=== PATIENT | female | born 1980 | race Caucasian/White ===

== ENCOUNTER 2021-08-05 11:41 | Inpatient (IN) | payer MEDICAID, SELFPAY ==
[2021-08-05 12:06] VITALS: BP 112/72; PULSE 112; RESP 20; TEMP 38.8; O2SAT 100; BMI 23.6
--- NOTE | 2021-08-05 13:23 | ED_ITS ---
HPI - Abdominal Pain General: Chief Complaint: Abdominal Pain Stated Complaint: N/V/D, ABD pain, Time Seen by Provider: 08/05/21 12:45 Source: patient Mode of arrival: ambulatory Limitations: no limitations History of Present Illness: 41 of old female who presents to the emergency room with abdominal pain is been going on for last week she had mild dysuria with it some fever as well. She generally has been very nauseous she has had a few episodes of loose stools no hematochezia melena hematemesis or coffee-ground emesis she has vomited a couple times as well. No history of renal stones no hematuria. MD elicited complaint: abdominal pain Pertinent past history: past UTI Onset (ago): week(s) (1) Pain Consistency: intermittent Location: Epigastric Severity: mild Quality: cramping Radiation: none Migration to: no migration Exacerbating factors: nothing Relieving factors: nothing Associated Symptoms: Reports GI cramping, poor appetite and vomiting; Denies anorexia, belching, bloating, change in bowel habits, change in stool character, chills, coffee ground emesis, constipation, diarrhea, dyspepsia, dysuria, excessive flatus, fever(s), heartburn, hematochezia, hematuria, hematemesis, fecal incontinence, loose stools, melena, nausea and syncope Review of Systems Const: Denies: fever(s) or chills ENMT: Denies: throat pain, ear or mastoid pain, nasal discharge or nasal congestion Card: Denies: syncope Resp: Denies: dyspnea, productive cough or non-productive cough GI: Reports: vomiting and GI cramping; Denies: nausea, hematemesis, coffee ground emesis, heartburn, diarrhea, constipation, bloating, belching, excessive flatus, fecal incontinence, change in bowel habits, change in stool character, hematochezia or melena : Denies: dysuria or hematuria Skin/Breast: Denies: rash or pruritus PFSH ED PFSH: Medical History 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), onset a few years ago, occurs maybe once a month Psychiatric care Tobacco use Surgical History History of colposcopy with cervical biopsy Family History Mother Fibromyalgia Social History Smoking and tobacco status: current some day smoker cigarettes [ Other cigarette details: About a half a pack a day] Alcohol intake: current Alcohol intake frequency: few times a month Physical Exam Const: GENERAL APPEARANCE: cooperative and comfortable ORIENTATION/CONSCIOUSNESS: Yes awake, Yes oriented to person, Yes oriented to place and Yes oriented to time HENMT: COMMON NORMALS: normocephalic, atraumatic, hearing grossly normal bilaterally, external ears normal, EAC's normal, TM's normal bilaterally and Normal nasal mucous membranes and turbinates present HEAD & SCALP: normocephalic and atraumatic NOSE: Normal nasal mucous membranes and turbinates present EXTERNAL EAR: Yes external ears normal EXTERNAL AUDITORY CANAL: EAC's normal TYMPANIC MEMBRANE: TM's normal bilaterally Eye: COMMON NORMALS: Equal, round and reactive pupils present, EOMs intact bilaterally, conjunctivae normal and no scleral icterus CONJUNCTIVA: Yes conjunctivae normal PUPIL: Yes Equal, round and reactive pupils present Neck/C-Spine: COMMON NORMALS: no JVD Lymph: LYMPHATIC: no lymphadenopathy noted and no lymphedema noted Resp: COMMON NORMALS: normal respiratory effort, No retractions, No use of accessory muscles and clear to auscultation bilaterally AUSCULTATION: clear to auscultation bilaterally Cardio: COMMON NORMALS: no JVD, regular rate, regular rhythm and No murmurs present (Cardio) RATE: regular rate RHYTHM: regular rhythm GI: COMMON NORMALS: Soft to palpation and No hepatosplenomegaly present AUSCULTATION: Yes normoactive bowel sounds PALPATION: Yes Soft to palpation, No Tenderness to palpation present (GI), No Guarding due to palpation present (GI) and Yes No hepatosplenomegaly present : BLADDER/KIDNEY EXAM: Yes CVA tenderness bilateral Back/Pelvis: GENERAL BACK: Yes CVA tenderness Extremity: COMMON NORMALS: normal to inspection, capillary refill normal, no clubbing, cyanosis or edema, no calf tenderness and no pedal edema Neuro: SENSORIUM/ORIENTATION: Yes oriented to person, Yes oriented to place and Yes oriented to time Skin: COMMON NORMALS: no rashes or lesions noted GENERAL SKIN EXAM: no rashes or lesions noted Course Vital Signs: Vital signs: Vital Signs Temperature 97.9 F 04/05/22 04:00 Pulse Rate 98 08/13/21 04:00 Respiratory Rate 17 08/13/21 04:00 Blood Pressure 136/72 08/13/21 04:00 Pulse Oximetry 96 08/13/21 04:00 MDM - Abdominal Pain Medical Decision Making Acute pyelonephritis with significant leukocytosis acute kidney injury and hypokalemia discussed with hospitalist orders written Medical Records I reviewed the patient's medical records. Lab Data I reviewed the patient's lab results. : 08/12/21 08:27 08/13/21 05:03 Labs/Radiology: Radiology Impressions Abdomen/Pelvis CT 08/05/21 13:42 IMPRESSION: 1. Bilateral enlarged kidneys with perinephric stranding and periureteral stranding and small amount of edema along the paracolic gutter on the RIGHT. Differential includes acute pyelonephritis, acute nephrotic syndrome vasculitis and glomerulonephritis. 2. Short segment area of wall thickening involving the ascending colon with adjacent fluid and stranding. Cannot exclude early colonic lesion. Consider colonoscopy on an outpatient basis. 3. Hepatomegaly and hepatic steatosis. Notified Wallace Cotton DO at 08/05/2021 2:59 PM. Laboratory Results WBC 44.4 10^3/uL (4.0-10.0) H* 08/05/21 13:20 RBC 3.86 10^6/uL (4.1-5.3) L 08/05/21 13:20 Hgb 11.9 g/dL (11.5-15.3) 08/05/21 13:20 Hct 35.2 % (37.0-47.0) L 08/05/21 13:20 MCV 91.2 fl (81-99) 08/05/21 13:20 MCH 30.8 pg (28.0-34.0) 08/05/21 13:20 MCHC 33.8 g/dL (30.0-36.0) 08/05/21 13:20 RDW 13.7 % (12.1-15.1) 08/05/21 13:20 Plt Count 180 10^3/cmm (130-400) 08/05/21 13:20 MPV 11.1 fL (7.4-10.4) H 08/05/21 13:20 Neut % (Auto) 87.9 % 08/05/21 13:20 Lymph % (Auto) 4.9 % 08/05/21 13:20 [place] % (Auto) 4.5 % 08/05/21 13:20 Eos % (Auto) 0.0 % 08/05/21 13:20 Baso % (Auto) 0.1 % 08/05/21 13:20 Neut # (Auto) 38.97 10^3/uL (1.8-7.7) H 08/05/21 13:20 Lymph # (Auto) 2.2 10^3/uL (0.8-4.8) 08/05/21 13:20 [place] # (Auto) 2.0 10^3/uL (0.2-0.9) H 08/05/21 13:20 Eos # (Auto) 0.0 10^3/uL (0.0-0.8) 08/05/21 13:20 Baso # (Auto) 0.1 10^3/uL (0.0-0.1) 08/05/21 13:20 Nucleated RBC % (auto) 0 % 08/05/21 13:20 Nucleated RBCs # 0.0 /100WBC 08/05/21 13:20 Sodium 130 mmol/L (136-145) L 08/05/21 14:21 Potassium 2.6 mmol/L (3.5-5.1) L* 08/05/21 14:21 Chloride 92 mmol/L (98-107) L 08/05/21 14:21 Carbon Dioxide 24 mmol/L (22-29) 08/05/21 14:21 Anion Gap 16.6 (5-19) 08/05/21 14:21 BUN 19 mg/dL (6-20) 08/05/21 14:21 Creatinine 2.0 mg/dL (0.5-0.9) H 08/05/21 14:21 GFR Calculation 27.2 mL/min (90-130) L 08/05/21 14:21 Glucose 113 mg/dL (65-115) 08/05/21 14:21 Calculated Osmolality 273 mOsm/kg (285-295) L 08/05/21 14:21 Lactic Acid 1.0 mmol/L (0.5-2.2) 08/05/21 14:21 Calcium 7.8 mg/dL (8.5-10.5) L 08/05/21 14:21 Total Bilirubin 0.7 mg/dL (0.15-1.2) 08/05/21 14:21 AST 39 U/L (0-32) H 08/05/21 14:21 ALT 20 U/L (0-33) 08/05/21 14:21 Alkaline Phosphatase 198 IU/L (35-105) H 08/05/21 14:21 Total Protein 6.1 g/dL (6.6-8.7) L 08/05/21 14:21 Albumin 2.0 g/dL (3.5-5.2) L 08/05/21 14:21 Globulin 4.1 g/dL (1.3-4.6) 08/05/21 14: Lipase 11 U/L (13-60) L 08/05/21 14:21 HCG, Qual Negative (Negative) 08/05/21 12:52 Urine Color Yellow (Yellow) 08/05/21 12:52 Urine Appearance Cloudy (CLEAR) 08/05/21 12:52 Urine pH 5 (5-7) 08/05/21 12:52 Ur Specific [place] 1.015 (1.005-1.030) 08/05/21 12:52 Urine Protein 2+ (Negative) H 08/05/21 12:52 Urine Glucose (UA) Norm (Normal) 08/05/21 12:52 Urine Ketones Negative (Negative) 08/05/21 12:52 Urine Blood 3+ (Negative) H 08/05/21 12:52 Urine Nitrate Negative (Negative) 08/05/21 12:52 Urine Bilirubin Neg (Negative) 08/05/21 12:52 Urine Urobilinogen 1 mg/dL (Negative) H 08/05/21 12:52 Ur Leukocyte Esterase 2+ (Negative) H 08/05/21 12:52 Urine RBC 10-15 /hpf (0-2) H 08/05/21 12:52 Urine WBC Too numerous to cnt /hpf (0-5) H 08/05/21 12:52 Ur Squamous Epith Cells 0-4 /hpf (0-5) H 08/05/21 12:52 Amorphous Sediment Not Reportable 08/05/21 12:52 Urine Bacteria 2+ /hpf (NONE) H 08/05/21 12:52 Discharge Plan Discharge Patient Disposition: Admitted As Inpatient Admit Provider: Chelle Franco Clinical Impression: Acute pyelonephritis, Acute kidney injury, Sepsis, Hypokalemia, Diarrhea Condition: Stable Coding Level of Care Code ED Paint Laboratory Technician for Chg Fwd Exam Comprehensive
[2021-08-05 13:31] LABS: Basophils # 0.1 10^3/uL (0.0-0.1); Basophils % 0.1 %; Hematocrit 35.2 % (37.0-47.0); Hemoglobin 11.9 g/dL (11.5-15.3); Lymphocytes # 2.2 10^3/uL (0.8-4.8); Lymphocytes % 4.9 %; Mean Corpuscular HGB Conc 33.8 g/dL (30.0-36.0); Mean Corpuscular Hemoglobin 30.8 pg (28.0-34.0); Mean Corpuscular Volume 91.2 fl (81-99); Mean Platelet Volume 11.1 fL (7.4-10.4); Monocytes % 4.5 %; Neutrophils # 38.97 10^3/uL (1.8-7.7); Neutrophils % 87.9 %; Nucleated Red Blood Cells % 0 %; Platelet Count 180 10^3/cmm (130-400); Red Blood Count 3.86 10^6/uL (4.1-5.3); Red Cell Distribution Width 13.7 % (12.1-15.1)
[2021-08-05 13:33] VITALS: RESP 17
[2021-08-05] MEDS: sodium chloride 0.9% 1,000 ML 999 ML IV ×3 (13:33→23:08)
[2021-08-05] MEDS: morphine 4 mg/mL SDV 1 mL IVP (13:33)
[2021-08-05 13:34] LABS: White Blood Count 44.4 10^3/uL (4.0-10.0)
[2021-08-05] MEDS: ondansetron 2 mg/ML SDV 2 mL 4 MG IVP (13:34)
[2021-08-05 13:38] LABS: Protein Urine 2+ (Negative); Specific Gravity, Urine 1.015 (1.005-1.030); Urine Appearance Cloudy (CLEAR); Urine Color Yellow (Yellow); pH Urine 5 (5-7)
[2021-08-05 13:39] LABS: Add Urine Microscopic? YES; Bilirubin Urine Neg (Negative); Blood Urine 3+ (Negative); Glucose Urine UA Norm (Normal); Ketones Urine Negative (Negative); Leukocyte Esterase Urine 2+ (Negative); Nitrate Urine Negative (Negative); Urobilinogen Urine 1 mg/dL (Negative)
[2021-08-05 13:40] LABS: Add Urine Culture? Yes; Bacteria Urine 2+ /hpf; Squamous Epithelial Cell Urine 0-4 /hpf (0-5); WBC Urine TOO NUMEROUS TO CNT /hpf (0-5)
--- NOTE | 2021-08-05 13:42 | CT_ITS ---
WS: [id number] CT ABDOMEN AND PELVIS NONCONTRAST HISTORY: Right-sided flank pain for one week. TECHNIQUE: Imaging performed through the abdomen and pelvis. Coronal and sagittal reformats are submi tted. All CT scans at [facility] use at least one of these dose optimization techniques: auto mated exposure control; mA and/or kV adjustment per patient size (includes targeted exams where dose is matched to clinical indication); or iterative reconstruction. DLP: 1273.54 mGy.cm COMPARISON: None available. Lower thorax: Lung bases are clear. Normal size heart. Small hiatal hernia. Liver: Low-attenuation from hepatic steatosis. No mass or bile duct dilatation. Gallbladder: Normal gallbladder. Pancreas: Normal size and attenuation. Normal pancreatic duct. No pancreatitis or mass. Spleen: Normal. Adrenal glands: Normal. No mass. Right kidney: Mildly enlarged edematous RIGHT kidney with perinephric stranding. There is also mild p eriureteral stranding with no obstructing calcifications identified. Left kidney: Mildly enlarged edematous LEFT kidney. Low-attenuation lesion in the posterior kidney ca nnot be further evaluated without IV contrast. Mild periureteral stranding with no obstruction. Aorta: Normal abdominal aorta, no aneurysm or atherosclerosis. There is mild thickening and edema inv olving the perirenal fascia with a small amount of fluid along the RIGHT paracolic gutter and adjacen t to the RIGHT lobe of the liver and ascending colon. No free air. No adenopathy identified on this unenhanced study. GI tract: The appendix is normal. No obstruction. There is a focal area of wall thickening involving the ascending colon. There is adjacent fluid and pericolonic stranding. Abdominal wall: Negative. No hernia. Pelvis: Normal. Osseous structures: Mild degenerative disc disease at L4-5. CT/CT kidney stone [id number] IMPRESSION: 1. Bilateral enlarged kidneys with perinephric stranding and periureteral stra nding and small amount of edema along the paracolic gutter on the RIGHT. Differ ential includes acute pyelonephritis, acute nephrotic syndrome vasculitis and g lomerulonephritis. 2. Short segment area of wall thickening involving the ascending colon with ad jacent fluid and stranding. Cannot exclude early colonic lesion. Consider colon oscopy on an outpatient basis. 3. Hepatomegaly and hepatic steatosis. Notified Wallace Cotton DO at 08/05/2021 2:59 PM.
[2021-08-05 14:16] LABS: HCG Qualitative Urine. Negative (Negative)
[2021-08-05] MEDS: cefTRIAXone 2,000 MG in sodium chloride 0.9% (plus) 50 ML 100 MG IV (14:23)
[2021-08-05 14:57] LABS: Alanine Aminotransferase 20 U/L (0-33); Alkaline Phosphatase 198 IU/L (35-105); Anion Gap 16.6 (5-19); Aspartate Amino Transferase 39 U/L (0-32); Blood Urea Nitrogen 19 mg/dL (6-20); Calcium 7.8 mg/dL (8.5-10.5); Carbon Dioxide 24 mmol/L (22-29); Chloride 92 mmol/L (98-107); Globulin 4.1 g/dL (1.3-4.6); Glomerular Filtration Rate 27.2 mL/min (90-130); Glucose 113 mg/dL (65-115); Lipase 11 U/L (13-60); Osmolality Calculated 273 mOsm/kg (285-295); Sodium 130 mmol/L (136-145); Total Bilirubin 0.7 mg/dL (0.15-1.2); Total Protein 6.1 g/dL (6.6-8.7)
[2021-08-05 15:00] LABS: Potassium 2.6 mmol/L (3.5-5.1)
[2021-08-05] MEDS: potassium chloride premix 100 ML 25 MEQ IV ×2 (15:43→18:55)
[2021-08-05] MEDS: sodium chloride 0.9% 1,000 ML 150 ML IV (15:47)
[2021-08-05 16:21] VITALS: RESP 17
[2021-08-05] MEDS: morphine 4 mg/mL SDV 1 mL 2 MG IVP (16:21)
[2021-08-05 17:47] VITALS: PULSE 107; RESP 16; O2SAT 93
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
--- NOTE | 2021-08-05 20:27 | PC.NURSE ---
report given to rhona penaloza
[2021-08-05 22:12] VITALS: BP 128/82; PULSE 103; PULSE 108; RESP 16; TEMP 36.8; O2SAT 95
[2021-08-05 22:38] VITALS: BMI 23.7
[2021-08-05] MEDS: metroNIDAZOLE IV 500 MG/100 ML PREMIX 100 MG IV (23:08)
[2021-08-05] MEDS: heparin 5,000 unit/mL INJ 1 mL 5000 UNIT SUBCUT (23:08)
[2021-08-06] VITALS (12 sets, daily range): BP systolic 124–138; BP diastolic 67–77; PULSE 72–102; RESP 16–18; TEMP 36.4–37.1; O2SAT 93–98
[2021-08-06] MEDS: sodium chlor 0.9% + KCl 20 mEq 20 MEQ/1,000 ML BAG 125 MEQ IV ×3 (00:15→19:28)
[2021-08-06] MEDS: cefTRIAXone 1,000 MG in sodium chloride 0.9% (plus) 50 ML 100 MG IV ×2 (02:24→16:04)
[2021-08-06] MEDS: morphine 4 mg/mL SDV 1 mL IVP (04:08)
[2021-08-06] MEDS: metroNIDAZOLE IV 500 MG/100 ML PREMIX 100 MG IV ×3 (05:22→21:59)
[2021-08-06] MEDS: duloxetine 60 mg Capsule 120 MG PO (05:22)
[2021-08-06 05:40] LABS: Hematocrit 31.5 % (37.0-47.0); Hemoglobin 10.4 g/dL (11.5-15.3); Mean Platelet Volume 10.6 fL (7.4-10.4); Red Blood Count 3.35 10^6/uL (4.1-5.3); Red Cell Distribution Width 14.1 % (12.1-15.1)
[2021-08-06 05:53] LABS: Lactic Sepsis W/Reflex 1.6 mmol/L (0.5-2.2)
[2021-08-06 05:54] LABS: C Reactive Protein 347.7 mg/L (0.0-4.9); Creatine Phosphokinase 25 U/L (26-192)
[2021-08-06 05:59] LABS: Alanine Aminotransferase 32 U/L (0-33); Albumin Level 2.2 g/dL (3.5-5.2); Alkaline Phosphatase 225 IU/L (35-105); Anion Gap 16.2 (5-19); Aspartate Amino Transferase 75 U/L (0-32); Blood Urea Nitrogen 19 mg/dL (6-20); Calcium 7.9 mg/dL (8.5-10.5); Carbon Dioxide 21 mmol/L (22-29); Chloride 101 mmol/L (98-107); Globulin 3.9 g/dL (1.3-4.6); Glomerular Filtration Rate 24.4 mL/min (90-130); Glucose 130 mg/dL (65-115); Magnesium 1.4 mg/dL (1.7-2.3); Osmolality Calculated 284 mOsm/kg (285-295); Phosphorus 2.5 mg/dL (2.5-4.5); Potassium 3.2 mmol/L (3.5-5.1); Sodium 135 mmol/L (136-145); Total Bilirubin 0.7 mg/dL (0.15-1.2); Total Protein 6.1 g/dL (6.6-8.7)
[2021-08-06 06:21] LABS: Platelet Count 152 10^3/cmm (130-400)
[2021-08-06 06:22] LABS: Slide Review Slide Review Perform; White Blood Count 37.3 10^3/uL (4.0-10.0)
[2021-08-06 06:24] LABS: Absolute Segmented Neutrophil 33.9 10/cmm (1.6-7.1); Band Neutrophils Absolute 1.1 10^3/cmm (0.0-1.2); Lymphocytes 1 %; Monocytes Absolute 1.1 10^3/cmm (0.1-0.6); Segmented Neutrophils 91 %; Total Cells Counted 100 (0-100)
[2021-08-06 06:25] LABS: Absolute Neutrophil 35.1 10^3/cmm (1.4-6.5); Eosinophils 0 %; Lymphocytes Absolute 0.4 10^3/cmm (1.2-3.4); Platelet Estimate Normal (Normal)
[2021-08-06] MEDS: docusate sodium 100 mg Capsule PO ×2 (08:30→16:04)
[2021-08-06] MEDS: lactobacillus 1 Tablet 1 TAB PO ×2 (08:30→16:04)
[2021-08-06] MEDS: famotidine 20 mg Tablet PO ×2 (08:30→16:04)
[2021-08-06] MEDS: heparin 5,000 unit/mL INJ 1 mL 5000 UNIT SUBCUT ×2 (10:05→21:59)
[2021-08-06 10:35] LABS: Acinetobacter baumannii Not Detected (NOT DETECT); Bacteroides fragilis Not Detected (NOT DETECT); CTX-M Not Detected (NOT DETECT); Citrobacter Not Detected (NOT DETECT); Cronobacter sakazakii Not Detected (NOT DETECT); Enterobacter cloacae complex Not Detected (NOT DETECT); Enterobacter non cloacae Not Detected (NOT DETECT); Fusobacterium necrophorum Not Detected (NOT DETECT); Fusobacterium nucleatum Not Detected (NOT DETECT); Haemophilus influenzae Not Detected (NOT DETECT); IMP Resistance Gene Not Detected (NOT DETECT); KPC Resistance Gene Not Detected (NOT DETECT); Klebsiella pneumoniae group Not Detected (NOT DETECT); Morganella morganii Not Detected (NOT DETECT); NDM Resistance Gene Not Detected (NOT DETECT); Neisseria meningitidis Not Detected (NOT DETECT); OXA Resistance Gene Not Detected (NOT DETECT); Pan Candida Not Detected (NOT DETECT); Pan Gram-Positive Not Detected (NOT DETECT); Proteus mirabilis Not Detected (NOT DETECT); Pseudomonas aeruginosa Not Detected (NOT DETECT); Salmonella Not Detected (NOT DETECT); Serratia Not Detected (NOT DETECT); Serratia marcescens Not Detected (NOT DETECT); Stenotrophomonas maltophilia Not Detected (NOT DETECT); VIM Resistance Gene Not Detected (NOT DETECT)
[2021-08-06] MEDS: ALPRAZolam 0.5 mg Tablet 1 MG PO (14:40)
[2021-08-06] MEDS: oxyCODONE-APAP 5-325 mg Tablet 1 TAB PO ×2 (16:04→23:38)
--- NOTE | 2021-08-06 18:52 | PM.PN ---
Subjective Subjective: Pt is doing better. Abdominal pain less. 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 Bd & Ur C/S E coli Status: Acute (2) Acute kidney injury: Due to sepsis, Ac Pyeloneph Status: Acute (3) Sepsis: due to Ac Pyeloneph Status: Acute Qualifiers: Sepsis type: sepsis due to unspecified organism Sepsis acute organ dysfunction status: with acute organ dysfunction Severe sepsis acute organ dysfunction type: acute renal failure Acute renal failure type: with acute tubular necrosis Severe sepsis shock status: without septic shock Qualified Code(s): A41.9 - Sepsis, unspecified organism; R65.20 - Severe sepsis without septic shock; N17.0 - Acute kidney failure with tubular necrosis (4) History of seizures: controlled Status: Chronic (5) Tobacco use: Status: Chronic (6) Hypokalemia: K 3.2 Status: Acute Plan KCl 40 mEq bid Continue Abx Sz precaution F/u Bd, Ur C/S DVT Prophylaxis Attestations Medical Necessity Statement*: Pt w/ sepsis Ac Pyelonephritis, ANASTASIA, Hypokalemia will need continued hospitalization for furter management Time Spent in Patient Care: 40 min Coding Level of Care Code 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
[2021-08-07] VITALS (10 sets, daily range): BP systolic 100–143; BP diastolic 61–91; PULSE 76–109; RESP 15–18; TEMP 36.6–36.8; O2SAT 93–98
[2021-08-07] MEDS: sodium chlor 0.9% + KCl 20 mEq 20 MEQ/1,000 ML BAG 125 MEQ IV ×3 (02:02→22:46)
[2021-08-07] MEDS: cefTRIAXone 1,000 MG in sodium chloride 0.9% (plus) 50 ML 100 MG IV ×2 (02:18→16:17)
[2021-08-07] MEDS: duloxetine 60 mg Capsule 120 MG PO (05:23)
[2021-08-07] MEDS: metroNIDAZOLE IV 500 MG/100 ML PREMIX 100 MG IV ×2 (05:23→18:00)
[2021-08-07] MEDS: oxyCODONE-APAP 5-325 mg Tablet 1 TAB PO ×3 (06:27→22:51)
[2021-08-07] MEDS: lactobacillus 1 Tablet 1 TAB PO ×2 (09:27→18:00)
[2021-08-07] MEDS: famotidine 20 mg Tablet PO ×2 (09:27→18:00)
[2021-08-07] MEDS: docusate sodium 100 mg Capsule PO ×2 (09:27→18:00)
[2021-08-07] MEDS: heparin 5,000 unit/mL INJ 1 mL 5000 UNIT SUBCUT ×2 (10:19→22:46)
[2021-08-07] MEDS: ALPRAZolam 0.5 mg Tablet 1 MG PO (14:28)
--- NOTE | 2021-08-07 18:18 | PM.PN ---
Subjective Medications: Medication Review Details: Doing OK. 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 Data : 08/06/21 05:02 08/06/21 05:02 Micro: Microbiology 08/05/21 12:52 Urine Culture - Final Urine,Clean Catch Escherichia coli 08/05/21 14:21 Blood Culture - Preliminary Blood Escherichia coli 08/05/21 14:19 Blood Culture - Preliminary Blood Escherichia coli A&P Assessment and plan (1) Hypokalemia: resolved Status: Acute (2) Acute pyelonephritis: clinically better Status: Acute (3) Acute kidney injury: improving Status: Acute (4) Sepsis: out of sepsis now Status: Acute Qualifiers: Sepsis type: sepsis due to unspecified organism Sepsis acute organ dysfunction status: with acute organ dysfunction Severe sepsis acute organ dysfunction type: acute renal failure Acute renal failure type: with acute tubular necrosis Severe sepsis shock status: without septic shock Qualified Code(s): A41.9 - Sepsis, unspecified organism; R65.20 - Severe sepsis without septic shock; N17.0 - Acute kidney failure with tubular necrosis (5) History of seizures: stable Status: Chronic (6) Tobacco use: Status: Chronic Plan CBC Continue Abx Attestations Medical Necessity Statement*: Pt w/ sepsis Ac Pyelonephritis, ANASTASIA, Hypokalemia will need continued hospitalization for furter management Time Spent in Patient Care: 40 min Coding Level of Care Code Acute 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
[2021-08-07 20:51] LABS: Basophils # 0.1 10^3/uL (0.0-0.1); Basophils % 0.3 %; Eosinophils # 0.1 10^3/uL (0.0-0.8); Eosinophils % 0.3 %; Hematocrit 36.2 % (37.0-47.0); Hemoglobin 11.3 g/dL (11.5-15.3); Lymphocytes # 2.8 10^3/uL (0.8-4.8); Lymphocytes % 11.3 %; Mean Corpuscular HGB Conc 31.2 g/dL (30.0-36.0); Mean Corpuscular Hemoglobin 30.7 pg (28.0-34.0); Mean Corpuscular Volume 98.4 fl (81-99); Mean Platelet Volume 11.4 fL (7.4-10.4); Monocytes # 1.9 10^3/uL (0.2-0.9); Monocytes % 7.7 %; Neutrophils # 19.24 10^3/uL (1.8-7.7); Neutrophils % 78.5 %; Nucleated Red Blood Cells % 0 %; Platelet Count 175 10^3/cmm (130-400); Red Blood Count 3.68 10^6/uL (4.1-5.3); Red Cell Distribution Width 14.5 % (12.1-15.1); White Blood Count 24.5 10^3/uL (4.0-10.0)
[2021-08-07 21:16] LABS: Anion Gap 14.3 (5-19); Blood Urea Nitrogen 15 mg/dL (6-20); Calcium 8.1 mg/dL (8.5-10.5); Carbon Dioxide 22 mmol/L (22-29); Chloride 103 mmol/L (98-107); Glomerular Filtration Rate 35.2 mL/min (90-130); Glucose 93 mg/dL (65-115); Osmolality Calculated 283 mOsm/kg (285-295); Potassium 3.3 mmol/L (3.5-5.1); Sodium 136 mmol/L (136-145)
[2021-08-08] VITALS (12 sets, daily range): BP systolic 128–155; BP diastolic 65–88; PULSE 55–101; RESP 16–19; TEMP 36.4–37.2; O2SAT 95–100
[2021-08-08] MEDS: metroNIDAZOLE IV 500 MG/100 ML PREMIX 100 MG IV ×3 (00:29→16:13)
[2021-08-08] MEDS: cefTRIAXone 1,000 MG in sodium chloride 0.9% (plus) 50 ML 100 MG IV ×2 (03:39→15:35)
[2021-08-08 05:13] LABS: Basophils # 0.1 10^3/uL (0.0-0.1); Basophils % 0.4 %; Eosinophils # 0.1 10^3/uL (0.0-0.8); Eosinophils % 0.5 %; Hematocrit 32.4 % (37.0-47.0); Hemoglobin 10.2 g/dL (11.5-15.3); Lymphocytes # 2.8 10^3/uL (0.8-4.8); Lymphocytes % 12.5 %; Mean Corpuscular HGB Conc 31.5 g/dL (30.0-36.0); Mean Corpuscular Hemoglobin 31.5 pg (28.0-34.0); Mean Platelet Volume 10.7 fL (7.4-10.4); Monocytes # 1.9 10^3/uL (0.2-0.9); Monocytes % 8.2 %; Neutrophils # 17.22 10^3/uL (1.8-7.7); Neutrophils % 76.4 %; Nucleated Red Blood Cells % 0 %; Platelet Count 463 10^3/cmm (130-400); Red Blood Count 3.24 10^6/uL (4.1-5.3); Red Cell Distribution Width 14.6 % (12.1-15.1); White Blood Count 22.5 10^3/uL (4.0-10.0)
[2021-08-08 05:47] LABS: Anion Gap 14.7 (5-19); Blood Urea Nitrogen 14 mg/dL (6-20); Carbon Dioxide 22 mmol/L (22-29); Chloride 106 mmol/L (98-107); Creatinine Clr Calc Pharmacy 58.2485; Glomerular Filtration Rate 37.9 mL/min (90-130); Glucose 105 mg/dL (65-115); Osmolality Calculated 289 mOsm/kg (285-295); Potassium 3.7 mmol/L (3.5-5.1); Sodium 139 mmol/L (136-145)
[2021-08-08] MEDS: sodium chlor 0.9% + KCl 20 mEq 20 MEQ/1,000 ML BAG 125 MEQ IV ×3 (06:16→22:46)
[2021-08-08] MEDS: duloxetine 60 mg Capsule 120 MG PO (06:16)
[2021-08-08] MEDS: lactobacillus 1 Tablet 1 TAB PO ×2 (08:23→17:42)
[2021-08-08] MEDS: bisacodyl 5 mg Tablet 10 MG PO (08:23)
[2021-08-08] MEDS: oxyCODONE-APAP 5-325 mg Tablet 1 TAB PO ×3 (08:23→22:55)
[2021-08-08] MEDS: famotidine 20 mg Tablet PO ×2 (08:23→17:42)
[2021-08-08] MEDS: docusate sodium 100 mg Capsule PO (08:24)
[2021-08-08] MEDS: heparin 5,000 unit/mL INJ 1 mL 5000 UNIT SUBCUT ×2 (10:27→22:47)
--- NOTE | 2021-08-08 17:16 | PM.PN ---
Subjective Subjective: Still having rt flank pain. Afebrile. 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 PROFESSOR OF LIBRARY MEDIA: A&Ox4 Data : 08/08/21 04:58 08/08/21 04:58 Micro: Microbiology 08/05/21 14:19 Blood Culture - Preliminary Blood Escherichia coli 08/05/21 14:21 Blood Culture - Preliminary Blood Escherichia coli 08/05/21 12:52 Urine Culture - Final Urine,Clean Catch Escherichia coli A&P Assessment and plan (1) Hypokalemia: resolved Status: Acute (2) Acute pyelonephritis: improving but WBC still high Status: Acute (3) Acute kidney injury: Cr 1.5 Status: Acute (4) Sepsis: not septic anymore Status: Acute Qualifiers: Sepsis type: sepsis due to unspecified organism Sepsis acute organ dysfunction status: with acute organ dysfunction Severe sepsis acute organ dysfunction type: acute renal failure Acute renal failure type: with acute tubular necrosis Severe sepsis shock status: without septic shock Qualified Code(s): A41.9 - Sepsis, unspecified organism; R65.20 - Severe sepsis without septic shock; N17.0 - Acute kidney failure with tubular necrosis (5) History of seizures: stable Status: Chronic (6) Tobacco use: Status: Chronic Plan Continue Abx Will plan for d/c once WBC in the teens Attestations Medical Necessity Statement*: Pt w/ sepsis Ac Pyelonephritis, ANASTASIA, Hypokalemia will need continued hospitalization for furter management Time Spent in Patient Care: 40 min Coding Level of Care Code Acute Rock Singer for g Fwd Diagnoses Hypokalemia E87.6 Acute pyelonephritis N10 Acute kidney injury N17.9 Sepsis A41.9; R65.20; N17.0 Sepsis type: sepsis due to unspecified organism Sepsis acute organ dysfunction status: with acute organ dysfunction Severe sepsis acute organ dysfunction type: acute renal failure Acute renal failure type: with acute tubular necrosis Severe sepsis shock status: without septic shock History of seizures Z87.898 Tobacco use Z72.0
[2021-08-08 18:10] LABS: Basophils # 0.1 10^3/uL (0.0-0.1); Basophils % 0.4 %; Eosinophils # 0.1 10^3/uL (0.0-0.8); Eosinophils % 0.3 %; Hemoglobin 10.4 g/dL (11.5-15.3); Lymphocytes # 2.1 10^3/uL (0.8-4.8); Lymphocytes % 10.5 %; Mean Corpuscular HGB Conc 31.5 g/dL (30.0-36.0); Mean Corpuscular Hemoglobin 31.1 pg (28.0-34.0); Mean Corpuscular Volume 98.8 fl (81-99); Mean Platelet Volume 10.2 fL (7.4-10.4); Monocytes # 1.6 10^3/uL (0.2-0.9); Monocytes % 7.8 %; Neutrophils # 15.81 10^3/uL (1.8-7.7); Neutrophils % 79.1 %; Nucleated Red Blood Cells % 0 %; Platelet Count 250 10^3/cmm (130-400); Red Blood Count 3.34 10^6/uL (4.1-5.3); Red Cell Distribution Width 14.6 % (12.1-15.1)
[2021-08-09] VITALS (10 sets, daily range): BP systolic 105–141; BP diastolic 58–83; PULSE 71–93; RESP 16–20; TEMP 36.6–37; O2SAT 95–100
[2021-08-09] MEDS: metroNIDAZOLE IV 500 MG/100 ML PREMIX 100 MG IV ×3 (01:16→17:59)
[2021-08-09] MEDS: cefTRIAXone 1,000 MG in sodium chloride 0.9% (plus) 50 ML 100 MG IV ×2 (05:03→17:06)
[2021-08-09] MEDS: duloxetine 60 mg Capsule 120 MG PO (05:04)
[2021-08-09] MEDS: oxyCODONE-APAP 5-325 mg Tablet 1 TAB PO ×3 (05:35→17:59)
--- NOTE | 2021-08-09 07:19 | PC.NURSE ---
Patient laying on right side watching TV at this time. Report gave by ELIEZER Briggs. Bed locked and in lowest position. Will continue plan of care
[2021-08-09 07:35] LABS: Basophils # 0.1 10^3/uL (0.0-0.1); Basophils % 0.4 %; Eosinophils # 0.1 10^3/uL (0.0-0.8); Eosinophils % 0.6 %; Hematocrit 31.2 % (37.0-47.0); Lymphocytes # 2.2 10^3/uL (0.8-4.8); Lymphocytes % 11.2 %; Mean Corpuscular HGB Conc 32.1 g/dL (30.0-36.0); Mean Corpuscular Hemoglobin 31.1 pg (28.0-34.0); Mean Corpuscular Volume 96.9 fl (81-99); Mean Platelet Volume 10.3 fL (7.4-10.4); Monocytes # 1.5 10^3/uL (0.2-0.9); Monocytes % 7.6 %; Neutrophils # 15.48 10^3/uL (1.8-7.7); Nucleated Red Blood Cells % 0 %; Platelet Count 604 10^3/cmm (130-400); Red Blood Count 3.22 10^6/uL (4.1-5.3); Red Cell Distribution Width 14.6 % (12.1-15.1); White Blood Count 19.6 10^3/uL (4.0-10.0)
[2021-08-09] MEDS: lactobacillus 1 Tablet 1 TAB PO ×2 (08:49→17:06)
[2021-08-09] MEDS: famotidine 20 mg Tablet PO ×2 (08:49→17:06)
[2021-08-09] MEDS: heparin 5,000 unit/mL INJ 1 mL 5000 UNIT SUBCUT ×2 (08:51→22:54)
[2021-08-09] MEDS: sodium chlor 0.9% + KCl 20 mEq 20 MEQ/1,000 ML BAG 125 MEQ IV ×3 (10:19→23:51)
[2021-08-09] MEDS: ALPRAZolam 0.5 mg Tablet 1 MG PO ×2 (12:52→20:31)
--- NOTE | 2021-08-09 13:28 | PM.PN ---
Subjective Subjective: Pt is doing better. Less flank pain and mild dysuria. 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 No improvement in renal func Status: Acute (4) Sepsis: resolved Status: Acute Qualifiers: Sepsis type: sepsis due to unspecified organism Sepsis acute organ dysfunction status: with acute organ dysfunction Severe sepsis acute organ dysfunction type: acute renal failure Acute renal failure type: with acute tubular necrosis Severe sepsis shock status: without septic shock Qualified Code(s): A41.9 - Sepsis, unspecified organism; R65.20 - Severe sepsis without septic shock; N17.0 - Acute kidney failure with tubular necrosis (5) History of seizures: stable Status: Chronic (6) Tobacco use: Status: Chronic Plan Continue IV Abx. Possibly change o PO Abx tomorrow and d/c if WBC around 16 or better Attestations Medical Necessity Statement*: Pt has Ac Pyelonephritis w/ significant leukocytosis. Needs continued hospitalization Time Spent in Patient Care: 35 min Coding Level of Care Code Acute Public Health Physician for [facility] Brii Diagnoses Hypokalemia E87.6 Acute pyelonephritis N10 Acute kidney injury N17.9 Sepsis A41.9; R65.20; N17.0 Sepsis type: sepsis due to unspecified organism Sepsis acute organ dysfunction status: with acute organ dysfunction Severe sepsis acute organ dysfunction type: acute renal failure Acute renal failure type: with acute tubular necrosis Severe sepsis shock status: without septic shock History of seizures Z87.898 Tobacco use Z72.0
[2021-08-10] VITALS (13 sets, daily range): BP systolic 114–148; BP diastolic 66–80; PULSE 65–103; RESP 16–20; TEMP 36.4–37.1; O2SAT 97–100
[2021-08-10] MEDS: metroNIDAZOLE IV 500 MG/100 ML PREMIX 100 MG IV ×3 (00:50→17:22)
[2021-08-10] MEDS: cefTRIAXone 1,000 MG in sodium chloride 0.9% (plus) 50 ML 100 MG IV ×2 (04:09→16:18)
[2021-08-10] MEDS: duloxetine 60 mg Capsule 120 MG PO (05:57)
[2021-08-10] MEDS: sodium chlor 0.9% + KCl 20 mEq 20 MEQ/1,000 ML BAG 125 MEQ IV ×2 (08:11→16:17)
[2021-08-10] MEDS: famotidine 20 mg Tablet PO ×2 (08:12→17:21)
[2021-08-10] MEDS: lactobacillus 1 Tablet 1 TAB PO ×2 (08:12→17:21)
[2021-08-10] MEDS: oxyCODONE-APAP 5-325 mg Tablet 1 TAB PO ×3 (08:26→23:13)
[2021-08-10] MEDS: heparin 5,000 unit/mL INJ 1 mL 5000 UNIT SUBCUT ×2 (10:43→21:52)
--- NOTE | 2021-08-10 12:04 | PM.PN ---
Subjective Subjective: Patient was seen and examined this morning, compaling of lt flank pain,also complaining of diarrhea. wbc count is trending down, has been afebrile for quite sometime.Her other vitals and labs have been reviewed. Medications: Medication Review Details: Generic Name Dose Route Start Last Admin Trade Name Freq PRN Reason Stop Dose Admin Bisacodyl 10 mg 08/05/21 22:12 08/08/21 08:23 Bisacodyl 5 Mg T ablet PO 10 mg DAILY PRN Administration Constipation (see protocol) Protocol Docusate Sodium 100 mg 08/06/21 09:00 08/10/21 08:13 Docusate Sodium 100 Mg Capsule PO Not Given BID CUBA Duloxetine HCl 120 mg 08/06/21 06:00 08/10/21 05:57 Duloxetine 60 Mg Capsule PO 120 mg QAM CUBA Administration Famotidine 20 mg 08/06/21 09:00 08/10/21 08:12 Famotidine 20 Mg Tablet PO 20 mg BID CUBA Administration Heparin Sodium (Po rcine) 5,000 unit 08/05/21 22:12 08/10/21 10:43 Heparin 5,000 Un it/Ml Inj 1 Ml SUBCUT 5,000 unit Q12H CUBA Administration Ceftriaxone Sodium 1,000 mg/ 50 mls @ 100 mls/ hr 08/06/21 02:30 08/10/21 04:49 Sodium Chloride IV Infused Q12H CUBA Infusion Protocol Potassium Chloride /Sodium Chloride 20 meq in 1,000 m ls @ 125 mls/hr 08/05/21 22:12 08/10/21 08:11 Sodium Chlor 0.9 % + Kcl 20 Meq IV 125 mls/hr .Q8H CUBA Administration Metronidazole 500 mg in 100 mls @ 100 mls/hr 08/05/21 22:12 08/10/21 09:13 Flagyl Iv IV Infused Q8H CUBA Infusion Protocol Lactobacillus Acid ophilus 1 tab 08/06/21 09:00 08/10/21 08:12 Lactobacillus 1 Tablet PO 1 tab BID CUBA Administration Vitals/I&O/Wt Last Vital Signs Temp 97.5 F L 08/10/21 09:08 Pulse 92 08/10/21 09:08 Resp 20 H 08/10/21 09:08 BP 118/76 08/10/21 09:08 Pulse Ox 99 08/10/21 09:08 08/09/21 08/10/21 08/10/21 22:59 06:59 14:59 Intake Total 2069 1902.5 / 4192.5 1050 / 1050 Output Total 1200 / 1200 Balance 2069 702.5 / 2992.5 1050 / 1050 Weight last 48 hrs Weight 87.09 kg Weight 88.133 kg Physical Exam Const: COMMON NORMALS: patient oriented x3 HENMT: COMMON NORMALS: normocephalic and atraumatic HEAD & SCALP: normocephalic and atraumatic Eye: GENERAL EYE: appearance normal, both eyes and all related structures Chest: COMMONS NORMALS: normal inspection of the chest and normal palpation of entire chest wall CHEST: Yes Symmetrical chest wall rise Resp: COMMON NORMALS: normal respiratory effort, No retractions, No use of accessory muscles and clear to auscultation bilaterally EFFORT & INSPECTION: Yes symmetric chest movement AUSCULTATION: clear to auscultation bilaterally Cardio: COMMON NORMALS: regular rate, regular rhythm, S1 normal heart sound present, S2 normal heart sound present, No gallops present (Cardio), No murmurs present (Cardio), No rub (Cardio) and Peripheral pulses 2+ throughout RATE: regular rate RHYTHM: regular rhythm HEART SOUNDS: S1 normal heart sound present and S2 normal heart sound present PERIPHERAL PULSES: Peripheral pulses 2+ throughout GI: COMMON NORMALS: Normal to inspection, nondistended, normoactive bowel sounds present, Soft to palpation, non-tender, No hepatosplenomegaly present and no masses AUSCULTATION: Yes normoactive bowel sounds PALPATION: Yes Soft to palpation and Yes No hepatosplenomegaly present RECTAL EXAM: deferred Extremity: COMMON NORMALS: no clubbing, cyanosis or edema and no pedal edema Neuro: COMMON NORMALS: patient oriented x3 Data : 08/09/21 07:30 08/08/21 04:58 A&P Assessment and plan (1) Hypokalemia: resolved Status: Acute (2) Acute pyelonephritis: clinically improving Status: Acute (3) Acute kidney injury: probably pt has CRI St 2. No improvement in renal func Status: Acute (4) Sepsis: resolved Status: Acute Qualifiers: Acute renal failure type: with acute tubular necrosis Sepsis acute organ dysfunction status: with acute organ dysfunction Sepsis type: sepsis due to unspecified organism Severe sepsis acute organ dysfunction type: acute renal failure Severe sepsis shock status: without septic shock Qualified Code(s): A41.9 - Sepsis, unspecified organism; R65.20 - Severe sepsis without septic shock; N17.0 - Acute kidney failure with tubular necrosis (5) History of seizures: stable Status: Chronic (6) Tobacco use: Status: Chronic (7) Diarrhea: Follow stool studies. Status: Acute Plan Continue IV Abx. Possibly change o PO Abx tomorrow and d/c if WBC around 16 or better Attestations Medical Necessity Statement*: Patient needs to be in hospital for the management of Ac pyelonephritis,need for I.V Abxs,diarrhea, need for I.V Fluids. Time Spent in Patient Care: Greater than 35 minutes (>than 50% of time spent in counselling and/or direct pt care on unit). Coding Level of Care Code Acute Supervisor Cloth Winding for g Fwd Exam Comprehensive Diagnoses Hypokalemia E87.6 Acute pyelonephritis N10 Acute kidney injury N17.9 Sepsis A41.9; R65.20; N17.0 Acute renal failure type: with acute tubular necrosis Sepsis acute organ dysfunction status: with acute organ dysfunction Sepsis type: sepsis due to unspecified organism Severe sepsis acute organ dysfunction type: acute renal failure Severe sepsis shock status: without septic shock History of seizures Z87.898 Tobacco use Z72.0 Diarrhea R19.7
[2021-08-11] VITALS (11 sets, daily range): BP systolic 123–141; BP diastolic 68–86; PULSE 71–82; RESP 16–18; TEMP 36.6–37.2; O2SAT 93–99
[2021-08-11] MEDS: metroNIDAZOLE IV 500 MG/100 ML PREMIX 100 MG IV ×2 (00:49→08:41)
[2021-08-11] MEDS: sodium chlor 0.9% + KCl 20 mEq 20 MEQ/1,000 ML BAG 125 MEQ IV ×3 (02:47→23:51)
[2021-08-11] MEDS: cefTRIAXone 1,000 MG in sodium chloride 0.9% (plus) 50 ML 100 MG IV ×2 (04:09→16:05)
[2021-08-11] MEDS: duloxetine 60 mg Capsule 120 MG PO (06:02)
[2021-08-11] MEDS: oxyCODONE-APAP 5-325 mg Tablet 1 TAB PO ×2 (06:06→20:26)
[2021-08-11 06:14] LABS: Basophils # 0.1 10^3/uL (0.0-0.1); Basophils % 0.6 %; Eosinophils # 0.2 10^3/uL (0.0-0.8); Hematocrit 36.7 % (37.0-47.0); Hemoglobin 11.1 g/dL (11.5-15.3); Lymphocytes # 3.1 10^3/uL (0.8-4.8); Lymphocytes % 19.6 %; Mean Corpuscular HGB Conc 30.2 g/dL (30.0-36.0); Mean Corpuscular Hemoglobin 30.2 pg (28.0-34.0); Mean Platelet Volume 10.9 fL (7.4-10.4); Monocytes # 1.1 10^3/uL (0.2-0.9); Monocytes % 7.1 %; Neutrophils # 10.83 10^3/uL (1.8-7.7); Neutrophils % 69.6 %; Nucleated Red Blood Cells % 0 %; Platelet Count 285 10^3/cmm (130-400); Red Blood Count 3.67 10^6/uL (4.1-5.3); Red Cell Distribution Width 14.6 % (12.1-15.1); White Blood Count 15.5 10^3/uL (4.0-10.0)
[2021-08-11] MEDS: ALPRAZolam 0.5 mg Tablet 2 MG PO (06:36)
[2021-08-11 06:37] LABS: Anion Gap 15.8 (5-19); Blood Urea Nitrogen 6 mg/dL (6-20); Calcium 8.6 mg/dL (8.5-10.5); Carbon Dioxide 21 mmol/L (22-29); Chloride 107 mmol/L (98-107); Glomerular Filtration Rate 54.2 mL/min (90-130); Glucose 95 mg/dL (65-115); Osmolality Calculated 287 mOsm/kg (285-295); Potassium 3.8 mmol/L (3.5-5.1); Sodium 140 mmol/L (136-145)
[2021-08-11] MEDS: famotidine 20 mg Tablet PO ×2 (08:40→17:38)
[2021-08-11] MEDS: lactobacillus 1 Tablet 1 TAB PO ×2 (08:40→17:38)
[2021-08-11] MEDS: heparin 5,000 unit/mL INJ 1 mL 5000 UNIT SUBCUT ×2 (10:46→21:53)
--- NOTE | 2021-08-11 14:19 | P.PN_ITS ---
Subjective Subjective: Patient was seen and examined this morning, overall she is doing fine, repeat blood culture has been drawn. Medications: Medication Review Details: Generic Name Dose Route Start Last Admin Trade Name [place] PRN Reason Stop Dose Admin Bisacodyl 10 mg 08/05/21 22:12 08/08/21 08:23 Bisacodyl 5 Mg T ablet PO 10 mg DAILY PRN Administration Constipation (see protocol) Protocol Docusate Sodium 100 mg 08/06/21 09:00 08/10/21 08:13 Docusate Sodium 100 Mg Capsule PO Not Given BID CUBA Duloxetine HCl 120 mg 08/06/21 06:00 08/10/21 05:57 Duloxetine 60 Mg Capsule PO 120 mg QAM CUBA Administration Famotidine 20 mg 08/06/21 09:00 08/10/21 08:12 Famotidine 20 Mg Tablet PO 20 mg BID CUBA Administration Heparin Sodium (Po rcine) 5,000 unit 08/05/21 22:12 08/10/21 10:43 Heparin 5,000 Un it/Ml Inj 1 Ml SUBCUT 5,000 unit Q12H CUBA Administration Ceftriaxone Sodium 1,000 mg/ 50 mls @ 100 mls/ hr 08/06/21 02:30 08/10/21 04:49 Sodium Chloride IV Infused Q12H CUBA Infusion Protocol Potassium Chloride /Sodium Chloride 20 meq in 1,000 m ls @ 125 mls/hr 08/05/21 22:12 08/10/21 08:11 Sodium Chlor 0.9 % + Kcl 20 Meq IV 125 mls/hr .Q8H CUBA Administration Metronidazole 500 mg in 100 mls @ 100 mls/hr 08/05/21 22:12 08/10/21 09:13 Flagyl Iv IV Infused Q8H CUBA Infusion Protocol Lactobacillus Acid ophilus 1 tab 08/06/21 09:00 08/10/21 08:12 Lactobacillus 1 Tablet PO 1 tab BID CUBA Administration Vitals/I&O/Wt Last Vital Signs Temp 98.5 F 08/11/21 12:00 Pulse 81 08/11/21 12:00 Resp 18 08/11/21 12:00 BP 134/80 08/11/21 12:00 Pulse Ox 99 08/11/21 12:00 08/10/21 08/11/21 08/11/21 22:59 06:59 14:59 Intake Total 1510 / 2560 1100 / 3660 1256.667 / 1256.667 Output Total 300 / 300 Balance 1210 / 2260 1100 / 3360 1256.667 / 1256.667 Weight last 48 hrs Weight 87.09 kg Physical Exam Const: COMMON NORMALS: patient oriented x3 HENMT: COMMON NORMALS: normocephalic and atraumatic HEAD & SCALP: normocep halic and atraumatic Eye: GENERAL EYE: appearance normal, both eyes and all related structures Chest: COMMONS NORMALS: normal inspection of the chest and normal palpation of entire chest wall CHEST: Yes Symmetrical chest wall rise Resp: COMMON NORMALS: normal respiratory effort, No retractions, No use of accessory muscles and clear to auscultation bilaterally EFFORT & INSPECTION: Yes symmetric chest movement AUSCULTATION: clear to auscultation bilaterally Cardio: COMMON NORMALS: regular rate, regular rhythm, S1 normal heart sound present, S2 normal heart sound present, No gallops present (Cardio), No murmurs present (Cardio), No rub (Cardio) and Peripheral pulses 2+ throughout RATE: regular rate RHYTHM: regular rhythm HEART SOUNDS: S1 normal heart sound present and S2 normal heart sound present PERIPHERAL PULSES: Peripheral pulses 2+ throughout GI: COMMON NORMALS: Normal to inspection, nondistended, normoactive bowel sounds present, Soft to palpation, non-tender, No hepatosplenomegaly present and no masses AUSCULTATION: Yes normoactive bowel sounds PALPATION: Yes Soft to palpation and Yes No hepatosplenomegaly present RECTAL EXAM: deferred Extremity: COMMON NORMALS: no clubbing, cyanosis or edema and no pedal edema Neuro: COMMON NORMALS: patient oriented x3 Data : 08/11/21 05:20 08/11/21 05:20 Micro: Microbiology 08/10/21 18:00 Enteric Pathogens (PCR) - Final Stool Routine Collection Parasite Antigen Panel - Final C.difficile Toxin B Gene (PCR) - Final 08/05/21 14:21 Blood Culture - Final Blood Escherichia coli 08/05/21 14:19 Blood Culture - Final Blood Escherichia coli 08/10/21 14:50 Blood Culture - Preliminary Blood SPECIMEN COLLECTED 08/10/21 14:52 Blood Culture - Preliminary Blood SPECIMEN COLLECTED A&P Assessment and plan (1) Hypokalemia: resolved Status: Acute (2) Acute pyelonephritis: clinically improving Status: Acute (3) Acute kidney injury: probably pt has CRI St 2. No improvement in renal func Status: Acute (4) Sepsis: resolved Status: Acute Qualifiers: Sepsis type: sepsis due to unspecified organism Sepsis acute organ dysfunction status: with acute organ dysfunction Severe sepsis acute organ dysfunction type: acute renal failure Acute renal failure type: with acute tubular necrosis Severe sepsis shock status: without septic shock Qualified Code(s): A41.9 - Sepsis, unspecified organism; R65.20 - Severe sepsis without septic shock; N17.0 - Acute kidney failure with tubular necrosis (5) History of seizures: stable Status: Chronic (6) Tobacco use: Status: Chronic (7) Diarrhea: Follow stool studies. Status: Acute Plan Continue IV Abx. Possibly change o PO Abx tomorrow and d/c if WBC around 16 or better Attestations Medical Necessity Statement*: Patient is to be in hospital for management of acute pyelonephritis, UTI , need for I.V antibiotic pending repeat blood culture. Coding Level of Care Code Acute Academic Affairs Director for [facility] Fwd Diagnoses Hypokalemia E87.6 Acute pyelonephritis N10 Acute kidney injury N17.9 Sepsis A41.9; R65.20; N17.0 Sepsis type: sepsis due to unspecified organism Sepsis acute organ dysfunction status: with acute organ dysfunction Severe sepsis acute organ dysfunction type: acute renal failure Acute renal failure type: with acute tubular necrosis Severe sepsis shock status: without septic shock History of seizures Z87.898 Tobacco use Z72.0 Diarrhea R19.7
[2021-08-11] MEDS: acetaminophen 325 mg Tablet 650 MG PO (17:40)
[2021-08-12] VITALS (9 sets, daily range): BP systolic 131–161; BP diastolic 79–91; PULSE 69–108; RESP 17–18; TEMP 36.5–37.1; O2SAT 97–100
[2021-08-12] MEDS: oxyCODONE-APAP 5-325 mg Tablet 1 TAB PO ×2 (03:15→19:30)
[2021-08-12] MEDS: cefTRIAXone 1,000 MG in sodium chloride 0.9% (plus) 50 ML 100 MG IV (05:11)
[2021-08-12] MEDS: duloxetine 60 mg Capsule 120 MG PO (05:12)
[2021-08-12 08:36] LABS: Basophils # 0.1 10^3/uL (0.0-0.1); Basophils % 0.8 %; Eosinophils # 0.1 10^3/uL (0.0-0.8); Eosinophils % 0.9 %; Hemoglobin 10.6 g/dL (11.5-15.3); Lymphocytes # 2.9 10^3/uL (0.8-4.8); Lymphocytes % 21.7 %; Mean Corpuscular HGB Conc 31.2 g/dL (30.0-36.0); Mean Corpuscular Volume 99.4 fl (81-99); Mean Platelet Volume 10.3 fL (7.4-10.4); Monocytes % 7.2 %; Neutrophils # 9.18 10^3/uL (1.8-7.7); Neutrophils % 68.7 %; Nucleated Red Blood Cells % 0 %; Platelet Count 589 10^3/cmm (130-400); Red Blood Count 3.42 10^6/uL (4.1-5.3); Red Cell Distribution Width 14.6 % (12.1-15.1); White Blood Count 13.4 10^3/uL (4.0-10.0)
[2021-08-12] MEDS: famotidine 20 mg Tablet PO ×2 (08:58→17:15)
[2021-08-12] MEDS: lactobacillus 1 Tablet 1 TAB PO ×2 (08:58→17:15)
[2021-08-12] MEDS: heparin 5,000 unit/mL INJ 1 mL 5000 UNIT SUBCUT ×2 (08:58→21:55)
[2021-08-12 09:07] LABS: Anion Gap 14.3 (5-19); Blood Urea Nitrogen 7 mg/dL (6-20); Calcium 8.8 mg/dL (8.5-10.5); Carbon Dioxide 24 mmol/L (22-29); Chloride 105 mmol/L (98-107); Glomerular Filtration Rate 60.5 mL/min (90-130); Glucose 99 mg/dL (65-115); Osmolality Calculated 286 mOsm/kg (285-295); Potassium 4.3 mmol/L (3.5-5.1); Sodium 139 mmol/L (136-145)
[2021-08-12] MEDS: levoFLOXacin 750 mg Tablet PO (10:38)
[2021-08-12] MEDS: acetaminophen 325 mg Tablet 650 MG PO (12:10)
[2021-08-12] MEDS: ALPRAZolam 0.5 mg Tablet 2 MG PO (12:20)
--- NOTE | 2021-08-12 19:00 | P.PN_ITS ---
Subjective Subjective: Patient was seen and examined this morning, overall she is doing fine.Repeat blood culture has remained negative in last 48 hrs, pain is better controlled. Lost I.V Line has been switched to po levofloxacin will complete 2 weeks course of abxs from negative blood culture. Medications: Medication Review Details: Generic Name Dose Route Start Last Admin Trade Name Tenzinq PRN Reason Stop Dose Admin Bisacodyl 10 mg 08/05/21 22:12 08/08/21 08:23 Bisacodyl 5 Mg T ablet PO 10 mg DAILY PRN Administration Constipation (see protocol) Protocol Docusate Sodium 100 mg 08/06/21 09:00 08/10/21 08:13 Docusate Sodium 100 Mg Capsule PO Not Given BID CUBA Duloxetine HCl 120 mg 08/06/21 06:00 08/10/21 05:57 Duloxetine 60 Mg Capsule PO 120 mg QAM CUBA Administration Famotidine 20 mg 08/06/21 09:00 08/10/21 08:12 Famotidine 20 Mg Tablet PO 20 mg BID CUBA Administration Heparin Sodium (Po rcine) 5,000 unit 08/05/21 22:12 08/10/21 10:43 Heparin 5,000 Un it/Ml Inj 1 Ml SUBCUT 5,000 unit Q12H CUBA Administration Ceftriaxone Sodium 1,000 mg/ 50 mls @ 100 mls/ hr 08/06/21 02:30 08/10/21 04:49 Sodium Chloride IV Infused Q12H CUBA Infusion Protocol Potassium Chloride /Sodium Chloride 20 meq in 1,000 m ls @ 125 mls/hr 08/05/21 22:12 08/10/21 08:11 Sodium Chlor 0.9 % + Kcl 20 Meq IV 125 mls/hr .Q8H CUBA Administration Metronidazole 500 mg in 100 mls @ 100 mls/hr 08/05/21 22:12 08/10/21 09:13 Flagyl Iv IV Infused Q8H CUBA Infusion Protocol Lactobacillus Acid ophilus 1 tab 08/06/21 09:00 08/10/21 08:12 Lactobacillus 1 Tablet PO 1 tab BID CUBA Administration Vitals/I&O/Wt Last Vital Signs Temp 98.3 F 08/12/21 16:00 Pulse 101 H 08/12/21 16:00 Resp 17 08/12/21 16:00 BP 131/86 08/12/21 16:00 Pulse Ox 99 08/12/21 16:00 08/12/21 08/12/21 08/12/21 06:59 14:59 22:59 Intake Total 2009 480 / 2490 Output Total 620 / 960 800 / 800 Balance -620 / 4016.935 3220 / 2010 -320 / 1690 Physical Exam Const: COMMON NORMALS: patient oriented x3 HENMT: COMMON NORMALS: normocephalic and atraumatic HEAD & SCALP: normocephalic and atraumatic Eye: GENERAL EYE: appearance normal, both eyes and all related structures Chest: COMMONS NORMALS: normal inspection of the chest and normal palpation of entire chest wall CHEST: Yes Symmetrical chest wall rise Resp: COMMON NORMALS: normal respiratory effort, No retractions, No use of accessory muscles and clear to auscultation bilaterally EFFORT & INSPECTION: Yes symmetric chest movement AUSCULTATION: clear to auscultation bilaterally Cardio: COMMON NORMALS: regular rate, regular rhythm, S1 normal heart sound present, S2 normal heart sound present, No gallops present (Cardio), No murmurs present (Cardio), No rub (Cardio) and Peripheral pulses 2+ throughout RATE: regular rate RHYTHM: regular rhythm HEART SOUNDS: S1 normal heart sound present and S2 normal heart sound present PERIPHERAL PULSES: Peripheral pulses 2+ throughout GI: COMMON NORMALS: Normal to inspection, nondistended, normoactive bowel sounds present, Soft to palpation, non-tender, No hepatosplenomegaly present and no masses AUSCULTATION: Yes normoactive bowel sounds PALPATION: Yes Soft to palpation and Yes No hepatosplenomegaly present RECTAL EXAM: deferred Extremity: COMMON NORMALS: no clubbing, cyanosis or edema and no pedal edema Neuro: COMMON NORMALS: patient oriented x3 Data : 08/12/21 08:27 08/12/21 08:27 Micro: Microbiology 08/10/21 14:52 Blood Culture - Preliminary Blood NEGATIVE TO DATE 08/10/21 14:50 Blood Culture - Preliminary Blood NEGATIVE TO DATE A&P Assessment and plan (1) Hypokalemia: resolved Status: Acute (2) Acute pyelonephritis: Urine and blood culture has grown E.Coli sensitive to cef. She has been Ceftriaxone. Was switched to levofloxacin po, will complete 2 weeks Abx from day of 1 st negative Blood culture. Status: Acute (3) Acute kidney injury: ANASTASIA likely 2/2 sepsis 2/2 UTI Admission SCR was 2.2 Baseline SCR unknown Has responded well to current medical management SCR is likely at baseline Continue to monitor BMP Avoid Nephrotoxics Continue to monitor I/O Charting Status: Acute (4) Sepsis: resolved Status: Acute Qualifiers: Acute renal failure type: with acute tubular necrosis Sepsis acute organ dysfunction status: with acute organ dysfunction Sepsis type: sepsis due to unspecified organism Severe sepsis acute organ dysfunction type: acute renal failure Severe sepsis shock status: without septic shock Qualified Code(s): A41.9 - Sepsis, unspecified organism; R65.20 - Severe sepsis without septic shock; N17.0 - Acute kidney failure with tubular necrosis (5) History of seizures: stable Status: Chronic (6) Tobacco use: Status: Chronic (7) Diarrhea: Follow stool studies. Status: Acute Attestations Medical Necessity Statement*: Patient needs to be in hospital for monitoring the blood culture, abxs. Coding Level of Care Code Acute Technical Designer for g Fwd Exam Comprehensive Diagnoses Hypokalemia E87.6 Acute pyelonephritis N10 Acute kidney injury N17.9 Sepsis A41.9; R65.20; N17.0 Acute renal failure type: with acute tubular necrosis Sepsis acute organ dysfunction status: with acute organ dysfunction Sepsis type: sepsis due to unspecified organism Severe sepsis acute organ dysfunction type: acute renal failure Severe sepsis shock status: without septic shock History of seizures Z87.898 Tobacco use Z72.0 Diarrhea R19.7
--- NOTE | 2021-08-12 19:27 | PC.NURSE ---
The patient requested a pain medication of Percocet, and this nurse informed patient that the doctor is wanting her to take Tylenol instead. Patient became argumentative and refused it, stating, Tylenol didnt do anything for me This nurse administered Percocet only because the patient demanded it.
[2021-08-13 04:00] VITALS: BP 136/72; PULSE 98; RESP 17; TEMP 36.6; O2SAT 96
[2021-08-13 05:38] LABS: Blood Urea Nitrogen 7 mg/dL (6-20); Calcium 8.8 mg/dL (8.5-10.5); Carbon Dioxide 25 mmol/L (22-29); Chloride 102 mmol/L (98-107); Glomerular Filtration Rate 54.2 mL/min (90-130); Glucose 114 mg/dL (65-115); Osmolality Calculated 283 mOsm/kg (285-295); Sodium 137 mmol/L (136-145)
[2021-08-13 05:43] LABS: Anion Gap 13.9 (5-19); Potassium 3.9 mmol/L (3.5-5.1)
[2021-08-13 06:04] LABS: Basophils # 0.1 10^3/uL (0.0-0.1); Basophils % 0.9 %; Eosinophils # 0.1 10^3/uL (0.0-0.8); Eosinophils % 0.9 %; Hematocrit 35.5 % (37.0-47.0); Hemoglobin 11.1 g/dL (11.5-15.3); Lymphocytes # 2.9 10^3/uL (0.8-4.8); Lymphocytes % 25.5 %; Mean Corpuscular HGB Conc 31.3 g/dL (30.0-36.0); Mean Corpuscular Hemoglobin 30.7 pg (28.0-34.0); Mean Corpuscular Volume 98.1 fl (81-99); Mean Platelet Volume 10.2 fL (7.4-10.4); Monocytes # 0.9 10^3/uL (0.2-0.9); Monocytes % 8.2 %; Neutrophils # 7.18 10^3/uL (1.8-7.7); Neutrophils % 63.6 %; Nucleated Red Blood Cells % 0 %; Platelet Count 157 10^3/cmm (130-400); Red Blood Count 3.62 10^6/uL (4.1-5.3); Red Cell Distribution Width 14.4 % (12.1-15.1); White Blood Count 11.3 10^3/uL (4.0-10.0)
[2021-08-13] MEDS: duloxetine 60 mg Capsule 120 MG PO (06:13)
[2021-08-13 07:05] VITALS: BP 109/71; PULSE 95; RESP 14; TEMP 36.3; O2SAT 96
[2021-08-13] MEDS: famotidine 20 mg Tablet PO (09:30)
[2021-08-13] MEDS: lactobacillus 1 Tablet 1 TAB PO (09:30)
[2021-08-13] MEDS: levoFLOXacin 750 mg Tablet PO (09:30)
[2021-08-13] MEDS: ALPRAZolam 0.5 mg Tablet 2 MG PO (09:38)
[2021-08-13 11:20] VITALS: BP 100/65; PULSE 105; RESP 18; TEMP 36.7; O2SAT 97
[2021-08-13 13:58] VITALS: BP 100/65; PULSE 105; RESP 18; TEMP 36.7; O2SAT 97
--- NOTE | 2021-08-13 14:55 | P.DS_ITS ---
Discharge Providers Date of Admission: 08/05/21 15:10 Date of Discharge: August 13, 2021 Attending Provider at Admission: Chelle Franco MD Attending Provider at Discharge: Immanuel Valenzuela MD Diagnoses at Discharge Discharge Diagnosis (1) Hypokalemia: Status: Acute (2) Acute pyelonephritis: Status: Acute (3) Acute kidney injury: Status: Acute (4) Sepsis: Status: Acute (5) History of seizures: Status: Chronic Permanent problem details: Variable type (grand mal and petit mal), onset a few years ago, occurs maybe once a month (6) Tobacco use: Status: Chronic (7) Diarrhea: Status: Acute Reason for Visit Reason for Visit: N/V/D, ABD pain, Hospital Course Hospital Course HPI : Chelle Franco MD Kate Perkins is a 41 year old female who presented to the emergency room with chief complaint of abdominal pain and flank pain radiating into the groin.? She has had several days of diarrhea, 6-7 loose stools a day along with nausea and intermittent episodes of vomiting anything she tried to take in.? She has had some subjective fevers.? Denies any hematemesis, hematochezia or melena.? Never had similar symptoms before.? Has not had significant vaginal discharge.? Regular cycles.? She is intermittently sexually active.? In the emergency room she was noted to have fever up to 102.? White count was 44,000.? CT of the abdomen and pelvis showed bilateral perinephric stranding as well as some periureteric stranding.? Some colonic wall thickening was also noted.? Patient received Rocephin, IV fluids and some electrolyte replacement and is being admitted for further evaluation and treatment as indicated.? Pain is moderate to severe in intensity and fluctuates.? At home nothing seem to really make it better or worse.? Again no similar symptoms in the past.? No known sick con tacts. Hospital course; She was admitted for the management of acute polynephritis: She was kept on IV antibiotics ceftriaxone Urine culture and blood culture grew E. coli: Sensitive to ceftriaxone, repeat blood culture was negative She was discharged on p.o. levofloxacin for another 14 days, since the day of first negative blood culture. During the hospital stay she was also managed for sepsis secondary to UTI, at the time of discharge sepsis has resolved, she was hemodynamically stable afebrile, was tolerating diet well. She was also managed for ANASTASIA secondary to UTI and sepsis, kidney function had more or less normalized at the time of discharge. During hospital stay she was also managed for diarrhea: Stool studies were negative. She was kept on IV hydration, oral intake was encouraged.Patient responded well to above medical management and is being discharged home in stable condition she will continue to follow with her primary care physician as an outpatient. Physical Exam Const: COMMON NORMALS: patient oriented x3 HENMT: COMMON NORMALS: normocephalic and atraumatic HEAD & SCALP: normocephalic and atraumatic Chest: CHEST: Yes Symmetrical chest wall rise Resp: COMMON NORMALS: clear to auscultation bilaterally EFFORT & INSPECTION: Yes symmetric chest movement AUSCULTATION: clear to auscultation bilaterally Cardio: COMMON NORMALS: regular rate, regular rhythm, S1 normal heart sound present, S2 normal heart sound present, No gallops present (Cardio), No murmurs present (Cardio), No rub (Cardio) and Peripheral pulses 2+ throughout RATE: regular rate RHYTHM: regular rhythm HEART SOUNDS: S1 normal heart sound present and S2 normal heart sound present PERIPHERAL PULSES: Peripheral pulses 2+ throughout GI: COMMON NORMALS: Normal to inspection, nondistended, normoactive bowel sounds present, Soft to palpation, non-tender, No hepatosplenomegaly present and no masses AUSCULTATION: Yes normoactive bowel sounds PALPATION: Yes Soft to palpation and Yes No hepatosplenomegaly present RECTAL EXAM: deferred Extremity: COMMON NORMALS: no clubbing, cyanosis or edema and no pedal edema Neuro: COMMON NORMALS: patient oriented x3 Discharge Data Studies Completed and Pending Completed Studies During Hospitalization Category Date Time Status CT kidney stone [id number] Stat Cat Scan 08/05/21 13:42 Completed Pending at discharge Category Date Time Status Blood Culture Routine Lab 08/10/21 14:50 Results Radiology Impressions Abdomen/Pelvis CT 08/05/21 13:42 IMPRESSION: 1. Bilateral enlarged kidneys with perinephric stranding and periureteral stranding and small amount of edema along the paracolic gutter on the RIGHT. Differential includes acute pyelonephritis, acute nephrotic syndrome vasculitis and glomerulonephritis. 2. Short segment area of wall thickening involving the ascending colon with adjacent fluid and stranding. Cannot exclude early colonic lesion. Consider colonoscopy on an outpatient basis. 3. Hepatomegaly and hepatic steatosis. Notified Wallace Cotton DO at 08/05/2021 2:59 PM. Laboratory Results WBC 11.3 10^3/uL (4.0-10.0) H 08/13/21 05:37 Corrected WBC Cancelled 08/13/21 05:03 RBC 3.62 10^6/uL (4.1-5.3) L 08/13/21 05:37 Hgb 11.1 g/dL (11.5-15.3) L 08/13/21 05:37 Hct 35.5 % (37.0-47.0) L 08/13/21 05:37 MCV 98.1 fl (81-99) 08/13/21 05:37 MCH 30.7 pg (28.0-34.0) 08/13/21 05:37 MCHC 31.3 g/dL (30.0-36.0) 08/13/21 05:37 RDW 14.4 % (12.1-15.1) 08/13/21 05:37 Plt Count 157 10^3/cmm (130-400) D 08/13/21 05:37 MPV 10.2 fL (7.4-10.4) 08/13/21 05:37 Gran % Cancelled 08/13/21 05:03 Neut % (Auto) 63.6 % 08/13/21 05:37 Lymph % (Auto) 25.5 % 08/13/21 05:37 [place] % (Auto) 8.2 % 08/13/21 05:37 Eos % (Auto) 0.9 % 08/13/21 05:37 Baso % (Auto) 0.9 % 08/13/21 05:37 Neut # (Auto) 7.18 10^3/uL (1.8-7.7) 08/13/21 05:37 Lymph # (Auto) 2.9 10^3/uL (0.8-4.8) 08/13/21 05:37 [place] # (Auto) 0.9 10^3/uL (0.2-0.9) 08/13/21 05:37 Eos # (Auto) 0.1 10^3/uL (0.0-0.8) 08/13/21 05:37 Baso # (Auto) 0.1 10^3/uL (0.0-0.1) 08/13/21 05:37 Absolute Gran (auto) Cancelled 08/13/21 05:03 Nucleated RBC % (auto) 0 % 08/13/21 05:37 Total Counted 100 (0-100) 08/06/21 05:02 Atypical Lymphs % 0.0 % (0-5) 08/06/21 05:02 Absolute Neutrophils 35.1 10^3/cmm (1.4-6.5) H 08/06/21 05:02 Segmented Neutrophils 91 % 08/06/21 05:02 Abs Segm Neuts (Man) 33.9 10/cmm (1.6-7.1) H 08/06/21 05:02 Band Neutrophils 3.0 % 08/06/21 05:02 Abs Band Neuts (Man) 1.1 10^3/cmm (0.0-1.2) 08/06/21 05:02 Absolute Lymphocytes 0.4 10^3/cmm (1.2-3.4) L 08/06/21 05:02 Lymphocytes (Manual) 1 % 08/06/21 05:02 Monocytes (Manual) 3.0 % 08/06/21 05:02 Absolute Monocytes 1.1 10^3/cmm (0.1-0.6) H 08/06/21 05:02 Eosinophils (Manual) 0 % 08/06/21 05:02 Absolute Eosinophils 0.0 10^3/cmm (0.0-0.7) 08/06/21 05:02 Basophils (Manual) 0.0 % 08/06/21 05:02 Absolute Basophils 0.0 10^3/cmm (0.0-0.2) 08/06/21 05:02 Metamyelocytes 1.0 % 08/06/21 05:02 Myelocytes 1.0 % 08/06/21 05:02 Nucleated RBCs # 0.0 /100WBC 08/13/21 05:37 Platelet Estimate Normal (Normal) 08/06/21 05:02 Sodium 137 mmol/L (136-145) 08/13/21 05:03 Potassium 3.9 mmol/L (3.5-5.1) 08/13/21 05:03 Chloride 102 mmol/L (98-107) 08/13/21 05:03 Carbon Dioxide 25 mmol/L (22-29) 08/13/21 05:03 Anion Gap 13.9 (5-19) 08/13/21 05:03 BUN 7 mg/dL (6-20) 08/13/21 05:03 Creatinine 1.1 mg/dL (0.5-0.9) H 08/13/21 05:03 GFR Calculation 54.2 mL/min (90-130) L 08/13/21 05:03 Glucose 114 mg/dL (65-115) 08/13/21 05:03 Calculated Osmolality 283 mOsm/kg (285-295) L 08/13/21 05:03 Lactic Acid 1.6 mmol/L (0.5-2.2) 08/06/21 05:02 Calcium 8.8 mg/dL (8.5-10.5) 08/13/21 05:03 Phosphorus 2.5 mg/dL (2.5-4.5) 08/06/21 05:02 Magnesium 1.4 mg/dL (1.7-2.3) L 08/06/21 05:02 Total Bilirubin 0.7 mg/dL (0.15-1.2) 08/06/21 05:02 AST 75 U/L (0-32) H 08/06/21 05:02 ALT 32 U/L (0-33) 08/06/21 05:02 Alkaline Phosphatase 225 IU/L (35-105) H 08/06/21 05:02 Creatine Kinase 25 U/L (26-192) L 08/06/21 05:02 C-Reactive Protein 347.7 mg/L (0.0-4.9) H 08/06/21 05:02 Total Protein 6.1 g/dL (6.6-8.7) L 08/06/21 05:02 Albumin 2.2 g/dL (3.5-5.2) L 08/06/21 05:02 Globulin 3.9 g/dL (1.3-4.6) 08/06/21 05:02 Lipase 11 U/L (13-60) L 08/05/21 14:21 HCG, Qual Negative (Negative) 08/05/21 12:52 Urine Color Yellow (Yellow) 08/05/21 12:52 Urine Appearance Cloudy (CLEAR) 08/05/21 12:52 Urine pH 5 (5-7) 08/05/21 12:52 Ur Specific [place] 1.015 (1.005-1.030) 08/05/21 12:52 Urine Protein 2+ (Negative) H 08/05/21 12:52 Urine Glucose (UA) Norm (Normal) 08/05/21 12:52 Urine Ketones Negative (Negative) 08/05/21 12:52 Urine Blood 3+ (Negative) H 08/05/21 12:52 Urine Nitrate Negative (Negative) 08/05/21 12:52 Urine Bilirubin Neg (Negative) 08/05/21 12:52 Urine Urobilinogen 1 mg/dL (Negative) H 08/05/21 12:52 Ur Leukocyte Esterase 2+ (Negative) H 08/05/21 12:52 Urine RBC 10-15 /hpf (0-2) H 08/05/21 12:52 Urine WBC Too numerous to cnt /hpf (0-5) H 08/05/21 12:52 Ur Squamous Epith Cells 0-4 /hpf (0-5) H 08/05/21 12:52 Amorphous Sediment Not Reportable 08/05/21 12:52 Urine Bacteria 2+ /hpf (NONE) H 08/05/21 12:52 Vitals Last Vital Signs Temp 98.1 F 08/13/21 13:58 Pulse 105 H 08/13/21 13:58 Resp 18 08/13/21 13:58 BP 100/65 08/13/21 13:58 Pulse Ox 97 08/13/21 13:58 Discharge Plan Discharge Patient Disposition: Home Condition: Stable Prescriptions: New levofloxacin 500 mg tablet 500 mg PO DAILY 14 Days Qty: 14 0RF Percocet 5-325 mg tablet 1 tab PO Q8H PRN (Reason: pain) Qty: 14 0RF ondansetron 4 mg tablet,disintegrating 4 mg PO Q6H PRN (Reason: nausea and vomiting) Qty: 20 0RF Acetaminophen Extra Strength 500 mg tablet 500 mg PO Q6H PRN (Reason: pain) Qty: 20 0RF Continued multivitamin Tablet 1 tab PO DAILY 0RF alprazolam 2 mg tablet 2 mg PO TID PRN (Reason: Anxiety) 0RF escitalopram oxalate 20 mg tablet 20 mg PO BEDTIME 0RF duloxetine 60 mg capsule,delayed release(DR/EC) 120 mg PO QAM 0RF Discharge Orders: Discharge Order (Routine); Ordered 08/13/21 Ordered By: Immanuel Valenzuela Referrals: Homer Reyna DO [Physician] - 08/27/21 9:30 am Discharge Diet: Regular Discharge Activity: Resume usual activity Patient Instructions: Oxycodone/Acetaminophen (By mouth), Levofloxacin (By [facility]), Opioid Safety, Pyelonephritis Discharge Attestations Time Spent in Discharge Care*: greater than 30 min Specific Discharge Activities: educating patient, educating and/or supporting family/caregiver, discussing with pcp/other providers, discussing with director of casework services/social workers/dc planners, documenting/other paperwork and evaluating patient/reviewing data Status at Discharge: Cognitive status at discharge: cognitively intact , Behavioral status at discharge: cooperative , Functional status at discharge: independent ambulation , Overall status at discharge: patient is back to baseline Quality Metrics Clinical Quality Measures [ No reported AMI, CVA or VTE this stay] Coding Level of Care Code Acute Chg DC note Diagnoses Hypokalemia E87.6 Acute pyelonephritis N10 Acute kidney injury N17.9 Sepsis A41.9 History of seizures Z87.898 Tobacco use Z72.0 Diarrhea R19.7
== END 2021-08-13 13:59 | disposition home or self-care (01) | DRG 871 ==
LOC: ER 15:58 → ER IP 19:06 → MEDSURG 20:19
PROVIDERS: Internal Medicine; Admitting Provider Hospitalist; Emergency Provider Family Medicine; Visit Provider Internal Medicine
DX: A41.9 Sepsis, unspecified organism (principal); N17.0 Acute kidney failure with tubular necrosis; N10 Acute pyelonephritis; N39.0 Urinary tract infection, site not specified; R65.20 Severe sepsis without septic shock; F17.210 Nicotine dependence, cigarettes, uncomplicated; E87.6 Hypokalemia; R19.7 Diarrhea, unspecified; B96.20 Unspecified Escherichia coli [E. coli] as the cause of diseases classified elsewhere; G40.409 Other generalized epilepsy and epileptic syndromes, not intractable, without status epilepticus
CPT/HCPCS: 36415; 74176; 80048; 80053; 81001; 81025; 82550; 83605; 83690; 83735; 84100; 85007; 85025; 86140; 87040; 87077; 87086; 87150; 87186; 87205; 87493; 87506; 96365; 96366; 96367; 96372; 96375; 96376; 99285; J0696; J1644; J2270; J2405; J3480; J7030; S0030

== ENCOUNTER 2021-08-16 08:20 | Inpatient (IN) | payer MEDICAID, SELFPAY ==
[2021-08-16] VITALS (59 sets, daily range): BP systolic 95–146; BP diastolic 54–89; PULSE 110–155; RESP 6–44; TEMP 37.3–38.6; O2SAT 92–100; BMI 24.3
--- NOTE | 2021-08-16 08:52 | ED_ITS ---
Documented by User: Raiza Garza PA-C 08/16/21 15:00 HPI - Abdominal Pain General: Chief Complaint: Abdominal Pain Stated Complaint: vomiting/diarrhea/abdominal pain/runny nose Time Seen by Provider: 08/16/21 08:51 Source: patient Mode of arrival: ambulatory Limitations: no limitations History of Present Illness: 41-year-old female presents to the ER today for nausea and right-sided abdominal pain that began about 4 AM this morning. Patient reports she was recently released from the hospital for a pyelonephritis infection. Patient reports she was feeling better and taking her antibiotics as prescribed and woke up this morning in severe pain. Patient reports the pain is on the right side and hurts with movement and is a constant, sharp pain. Patient reports she had nausea and vomiting associated with pain this morning. She did try to take her nausea medication at home with minimal relief. Patient reports several episodes of vomiting this a.m. Patient reports watery diarrhea. Patient denies headache, fever, chills, chest pain, shortness of breath. 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), onset a few years ago, occurs maybe once a month Hypokalemia Psychiatric care Sepsis Tobacco use Surgical History History of colposcopy with cervical biopsy Family History Mother Fibromyalgia Social History Smoking and tobacco status: current some day smoker cigarettes [ Other cigarette details: About a half a pack a day] Alcohol intake: current Alcohol intake frequency: few times a month Physical Exam Const: COMMON NORMALS: patient oriented x3 and no limitations GENERAL APPEARANCE: in distress; not comfortable Resp: COMMON NORMALS: normal respiratory effort and clear to auscultation bilaterally AUSCULTATION: clear to auscultation bilaterally Cardio: COMMON NORMALS: regular rhythm RATE: tachycardic RHYTHM: regular rhythm HEART SOUNDS: no murmurs GI: COMMON NORMALS: Soft to palpation and No hepatosplenomegaly present AUSCULTATION: Yes normoactive bowel sounds PALPATION: Yes Soft to palpation, Yes Tenderness to palpation present (GI) Details: RLQ and RUQ, Yes Guarding due to palpation present (GI) in the RLQ and in the RUQ and Yes No hepatosplenomegaly present : COMMON NORMALS: Yes no CVA tenderness BLADDER/KIDNEY EXAM: Yes no CVA tenderness Back/Pelvis: COMMON NORMALS: no CVA tenderness Extremity: GENERAL: Yes normal exam except as noted Neuro: COMMON NORMALS: patient oriented x3 Psych: COMMON NORMALS: mental status grossly normal, Normal thought process present and cooperative THOUGHT PROCESS: Normal thought process present Skin: COMMON NORMALS: no rashes or lesions noted GENERAL SKIN EXAM: no rashes or lesions noted Course ED course: 41-year-old female presents to the ER today for right side abdomin al pain that began at 4 AM this morning. Patient was recently hospitalized for pyelonephritis. She reports the symptoms have started to improve and she is taking her antibiotics as prescribed. Patient reports this pain is a sharp stabbing pain. She took a nausea medication with no relief. We will get CT at this time given location of pain in addition to lab work. Consultations: Consultation #1: Spoke with radiologist and she reports pyelonephritis appears worsened along with some abscesses in the kidney that were not present on last exam 1 week ago. Also some indication of hypovolemic shock within the small bowels. Time: 11:30 Consultation #2: Care discussed with Dr. West. Dr. West will take this patient and admit her. Time: 11:36 Vital Signs: Vital signs: Vital Signs Temperature 97.9 F 08/19/21 00:00 Pulse Rate 61 08/19/21 00:00 Respiratory Rate 16 08/19/21 00:00 Blood Pressure 138/74 08/19/21 00:00 Pulse Oximetry 97 08/19/21 00:00 MDM - Abdominal Pain Medical Decision Making Care transferred to Dr. West. Patient admitted. Lab Data : 08/18/21 05:45 08/18/21 05:45 Labs/Radiology: Radiology Impressions Abdomen/Pelvis CT 08/16/21 09:00 IMPRESSION: 1. Abnormal enhancement throughout each kidney consistent with pyelonephritis and multifocal renal abscesses. Greater involvement of the LEFT kidney. No obstruction or hydronephrosis. 2. The largest renal abscess measures 17 mm lower pole LEFT kidney. 3. Abnormal appearance to the small bowel is new since the prior examination. There is extensive submucosal edema and fluid distention of the small bowel. These findings can be seen with hypovolemic shock/ischemic changes. Consider postinfectious causes. 4. Improved but persistent mild wall thickening and loss of the normal folds. Consider pseudomembranous colitis and infectious causes. As indicated on the prior examination colonoscopy to evaluate the RIGHT colon should be obtained. Notified Raiza Garza PA-C at 08/16/2021 11:26 AM. Laboratory Results WBC 23.8 10^3/uL (4.0-10.0) H 08/16/21 10:00 RBC 4.61 10^6/uL (4.1-5.3) 08/16/21 10:00 Hgb 14.0 g/dL (11.5-15.3) 08/16/21 10:00 Hct 45.6 % (37.0-47.0) 08/16/21 10:00 MCV 98.9 fl (81-99) 08/16/21 10:00 MCH 30.4 pg (28.0-34.0) 08/16/21 10:00 MCHC 30.7 g/dL (30.0-36.0) 08/16/21 10:00 RDW 14.0 % (12.1-15.1) 08/16/21 10:00 Plt Count 227 10^3/cmm (130-400) 08/16/21 10:00 MPV 9.5 fL (7.4-10.4) 08/16/21 10:00 Neut % (Auto) 90.8 % 08/16/21 10:00 Lymph % (Auto) 5.7 % 08/16/21 10:00 [place] % (Auto) 2.1 % 08/16/21 10:00 Eos % (Auto) 0.2 % 08/16/21 10:00 Baso % (Auto) 0.4 % 08/16/21 10:00 Neut # (Auto) 21.61 10^3/uL (1.8-7.7) H 08/16/21 10:00 Lymph # (Auto) 1.4 10^3/uL (0.8-4.8) 08/16/21 10:00 [place] # (Auto) 0.5 10^3/uL (0.2-0.9) 08/16/21 10:00 Eos # (Auto) 0.0 10^3/uL (0.0-0.8) 08/16/21 10:00 Baso # (Auto) 0.1 10^3/uL (0.0-0.1) 08/16/21 10:00 Nucleated RBC % (auto) 0 % 08/16/21 10:00 Nucleated RBCs # 0.0 /100WBC 08/16/21 10:00 Sodium 142 mmol/L (136-145) 08/16/21 10:00 Potassium 4.3 mmol/L (3.5-5.1) 08/16/21 10:00 Chloride 100 mmol/L (98-107) 08/16/21 10:00 Carbon Dioxide 20 mmol/L (22-29) L 08/16/21 10:00 Anion Gap 26.3 (5-19) H 08/16/21 10:00 BUN 12 mg/dL (6-20) 08/16/21 10:00 Creatinine 1.6 mg/dL (0.5-0.9) H 08/16/21 10:00 GFR Calculation 35.2 mL/min (90-130) L 08/16/21 10:00 Glucose 191 mg/dL (65-115) H 08/16/21 10:00 Estimat Average Glucose 114 08/16/21 10:00 Hemoglobin A1c 5.6 % (4.0-6.0) 08/16/21 10:00 Calculated Osmolality 299 mOsm/kg (285-295) H 08/16/21 10:00 Lactic Acid 2.7 mmol/L (0.5-2.2) H 08/16/21 11:40 Calcium 11.4 mg/dL (8.5-10.5) H 08/16/21 10:00 Magnesium 1.6 mg/dL (1.7-2.3) L 08/16/21 10:00 Total Bilirubin 0.5 mg/dL (0.15-1.2) 08/16/21 10:00 AST 40 U/L (0-32) H 08/16/21 10:00 ALT 23 U/L (0-33) 08/16/21 10:00 Alkaline Phosphatase 200 IU/L (35-105) H 08/16/21 10:00 Total Protein 9.7 g/dL (6.6-8.7) H 08/16/21 10:00 Albumin 3.9 g/dL (3.5-5.2) 08/16/21 10:00 Globulin 5.8 g/dL (1.3-4.6) H 08/16/21 10:00 Lipase 34 U/L (13-60) 08/16/21 10:00 TSH 1.14 uIU/mL (0.27-4.20) 08/16/21 10:00 Ser , Semi-Qnt 0.50 mIU/mL 08/16/21 10:00 Urine Color Yellow (Yellow) 08/16/21 09:25 Urine Appearance Hazy (CLEAR) A 08/16/21 09:25 Urine pH 6.5 (5-7) 08/16/21 09:25 Ur Specific [place] 1.005 (1.005-1.030) 08/16/21 09:25 Urine Protein 1+ (Negative) H 08/16/21 09:25 Urine Glucose (UA) Norm (Normal) 08/16/21 09:25 Urine Ketones Negative (Negative) 08/16/21 09:25 Urine Blood 2+ (Negative) H 08/16/21 09:25 Urine Nitrate Negative (Negative) 08/16/21 09:25 Urine Bilirubin Neg (Negative) 08/16/21 09:25 Urine Urobilinogen Norm mg/dL (Negative) 08/16/21 09:25 Ur Leukocyte Esterase 2+ (Negative) H 08/16/21 09:25 Urine RBC 0-4 /hpf (0-2) H 08/16/21 09:25 Urine WBC >100 /hpf (0-5) H 08/16/21 09:25 Ur Squamous Epith Cells 0-4 /hpf (0-5) H 08/16/21 09:25 Amorphous Sediment Not Reportable 08/16/21 09:25 Urine Bacteria Trace /hpf (NONE) 08/16/21 09:25 Urine Opiates Screen Positive ng/mL (Negative) H 08/16/21 09:25 Ur Barbiturates Screen Negative ng/mL (Negative) 08/16/21 09:25 Ur Phencyclidine Scrn Negative ng/mL (Negative) 08/16/21 09:25 Ur Amphetamines Screen Negative ng/mL (Negative) 08/16/21 09:25 U Benzodiazepines Scrn Positive ng/mL (Negative) H 08/16/21 09:25 Urine Cocaine Screen Negative ng/mL (Negative) 08/16/21 09:25 U Marijuana (THC) Screen Positive ng/mL (Negative) H 08/16/21 09:25 Serum Ketones Negative (Negative) 08/16/21 10:00 Discharge Plan Discharge Patient Disposition: Admitted As Inpatient Admit Provider: Jacob Steele Clinical Impression: Severe sepsis, UTI (urinary tract infection), Pyelonephritis, Enteritis, ANASTASIA (acute kidney injury), Acidosis, lactic Condition: Stable Coding Level of Care Code ED Merchandise Clerk for Chg Fwd Exam Comprehensive Documented by User: Luis Enrique West MD 08/19/21 00:58 HPI - Abdominal Pain General: Chief Complaint: Abdominal Pain Stated Complaint: vomiting/diarrhea/abdominal pain/runny nose Time Seen by Provider: 08/16/21 08:51 PFSH ED PFSH: Medical History Acute kidney injury Acute pyelonephritis Diarrhea 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), onset a few years ago, occurs maybe once a month Hypokalemia Psychiatric care Sepsis Tobacco use Surgical History History of colposcopy with cervical biopsy Family History Mother Fibromyalgia Social History Smoking and tobacco status: current some day smoker cigarettes [ Other cigarette details: About a half a pack a day] Alcohol intake: current Alcohol intake frequency: few times a month Course Vital Signs: Vital signs: Vital Signs Temperature 97.9 F 08/19/21 00:00 Pulse Rate 61 08/19/21 00:00 Respiratory Rate 16 08/19/21 00:00 Blood Pressure 138/74 08/19/21 00:00 Pulse Oximetry 97 08/19/21 00:00 MDM - Abdominal Pain Medical Decision Making Care transferred to Dr. West. Patient admitted. Patient discussed with VERA Lepe. I personally saw the patient and reper formed [place] portions of E/M. I agree with documentation as noted above. - Labs personally interpreted by me. EKGs reviewed and show sinus tachycardia without evidence of STEMI. - Fluids and antibiotics given in ED. - Labs notable for leukocytosis which is worse than prior. Hemoglobin normal. Metabolic panel with evidence of generalized illness including elevated creatinine, no acute electrolyte derangement. Initial lactic acid elevated. - Imaging notable for pyelonephritis with renal abscess. Discussed with urology, no indication for surgical management at this time. - Upon serial reexamination after treatment the patient was similar, she did become more tachycardic which is likely secondary to illness as opposed to primary cardiac etiology. - Based on patient history, evaluation, and testing as interpreted the most likely cause of the patient's condition is severe sepsis secondary to pyelonephritis with renal abscesses - The results of ED evaluation were discussed with the patient including plan for admission due to requirement for level of care not available if discharged to prevent significant worsening/deterioration. - Admitting service was contacted and Dr Steele with the hospitalist service agreed to admit the patient - Patient was admitted without further deterioration or significant events. Note: Click bubbles or prepopulated terrell in note writing are used for assistance with data collection and billing and are inherently more limited than narrative and other text portions of this note. Please use narrative for additional clinical history and defer to narrative/free test for any case of contradictory information. If information appears in only free text or click bubble it should be considered present or absent as reported. Please contact note assembly instructions writer for clarifications of clinical information or contradictory information. MDM is a brief summary, contradictory or erroneous seeming information should be clarified and full note should be reviewed. Lab Data : 08/18/21 05:45 08/18/21 05:45 Labs/Radiology: Radiology Impressions Abdomen/Pelvis CT 08/16/21 09:00 IMPRESSION: 1. Abnormal enhancement throughout each kidney consistent with pyelonephritis and multifocal renal abscesses. Greater involvement of the LEFT kidney. No obstruction or hydronephrosis. 2. The largest renal abscess measures 17 mm lower pole LEFT kidney. 3. Abnormal appearance to the small bowel is new since the prior examination. There is extensive submucosal edema and fluid distention of the small bowel. These findings can be seen with hypovolemic shock/ischemic changes. Consider postinfectious causes. 4. Improved but persistent mild wall thickening and loss of the normal folds. Consider pseudomembranous colitis and infectious causes. As indicated on the prior examination colonoscopy to evaluate the RIGHT colon should be obtained. Notified Raiza Garza PA-C at 08/16/2021 11:26 AM. Laboratory Results WBC 23.8 10^3/uL (4.0-10.0) H 08/16/21 10:00 RBC 4.61 10^6/uL (4.1-5.3) 08/16/21 10:00 Hgb 14.0 g/dL (11.5-15.3) 08/16/21 10:00 Hct 45.6 % (37.0-47.0) 08/16/21 10:00 MCV 98.9 fl (81-99) 08/16/21 10:00 MCH 30.4 pg (28.0-34.0) 08/16/21 10:00 MCHC 30.7 g/dL (30.0-36.0) 08/16/21 10:00 RDW 14.0 % (12.1-15.1) 08/16/21 10:00 Plt Count 227 10^3/cmm (130-400) 08/16/21 10:00 MPV 9.5 fL (7.4-10.4) 08/16/21 10:00 Neut % (Auto) 90.8 % 08/16/21 10:00 Lymph % (Auto) 5.7 % 08/16/21 10:00 [place] % (Auto) 2.1 % 08/16/21 10:00 Eos % (Auto) 0.2 % 08/16/21 10:00 Baso % (Auto) 0.4 % 08/16/21 10:00 Neut # (Auto) 21.61 10^3/uL (1.8-7.7) H 08/16/21 10:00 Lymph # (Auto) 1.4 10^3/uL (0.8-4.8) 08/16/21 10:00 [place] # (Auto) 0.5 10^3/uL (0.2-0.9) 08/16/21 10:00 Eos # (Auto) 0.0 10^3/uL (0.0-0.8) 08/16/21 10:00 Baso # (Auto) 0.1 10^3/uL (0.0-0.1) 08/16/21 10:00 Nucleated RBC % (auto) 0 % 08/16/21 10:00 Nucleated RBCs # 0.0 /100WBC 08/16/21 10:00 Sodium 142 mmol/L (136-145) 08/16/21 10:00 Potassium 4.3 mmol/L (3.5-5.1) 08/16/21 10:00 Chloride 100 mmol/L (98-107) 08/16/21 10:00 Carbon Dioxide 20 mmol/L (22-29) L 08/16/21 10:00 Anion Gap 26.3 (5-19) H 08/16/21 10:00 BUN 12 mg/dL (6-20) 08/16/21 10:00 Creatinine 1.6 mg/dL (0.5-0.9) H 08/16/21 10:00 GFR Calculation 35.2 mL/min (90-130) L 08/16/21 10:00 Glucose 191 mg/dL (65-115) H 08/16/21 10:00 Estimat Average Glucose 114 08/16/21 10:00 Hemoglobin A1c 5.6 % (4.0-6.0) 08/16/21 10:00 Calculated Osmolality 299 mOsm/kg (285-295) H 08/16/21 10:00 Lactic Acid 2.7 mmol/L (0.5-2.2) H 08/16/21 11:40 Calcium 11.4 mg/dL (8.5-10.5) H 08/16/21 10:00 Magnesium 1.6 mg/dL (1.7-2.3) L 08/16/21 10:00 Total Bilirubin 0.5 mg/dL (0.15-1.2) 08/16/21 10:00 AST 40 U/L (0-32) H 08/16/21 10:00 ALT 23 U/L (0-33) 08/16/21 10:00 Alkaline Phosphatase 200 IU/L (35-105) H 08/16/21 10:00 Total Protein 9.7 g/dL (6.6-8.7) H 08/16/21 10:00 Albumin 3.9 g/dL (3.5-5.2) 08/16/21 10:00 Globulin 5.8 g/dL (1.3-4.6) H 08/16/21 10:00 Lipase 34 U/L (13-60) 08/16/21 10:00 TSH 1.14 uIU/mL (0.27-4.20) 08/16/21 10:00 Ser , Semi-Qnt 0.50 mIU/mL 08/16/21 10:00 Urine Color Yellow (Yellow) 08/16/21 09:25 Urine Appearance Hazy (CLEAR) A 08/16/21 09:25 Urine pH 6.5 (5-7) 08/16/21 09:25 Ur Specific [place] 1.005 (1.005-1.030) 08/16/21 09:25 Urine Protein 1+ (Negative) H 08/16/21 09:25 Urine Glucose (UA) Norm (Normal) 08/16/21 09:25 Urine Ketones Negative (Negative) 08/16/21 09:25 Urine Blood 2+ (Negative) H 08/16/21 09:25 Urine Nitrate Negative (Negative) 08/16/21 09:25 Urine Bilirubin Neg (Negative) 08/16/21 09:25 Urine Urobilinogen Norm mg/dL (Negative) 08/16/21 09:25 Ur Leukocyte Esterase 2+ (Negative) H 08/16/21 09:25 Urine RBC 0-4 /hpf (0-2) H 08/16/21 09:25 Urine WBC >100 /hpf (0-5) H 08/16/21 09:25 Ur Squamous Epith Cells 0-4 /hpf (0-5) H 08/16/21 09:25 Amorphous Sediment Not Reportable 08/16/21 09:25 Urine Bacteria Trace /hpf (NONE) 08/16/21 09:25 Urine Opiates Screen Positive ng/mL (Negative) H 04/08/22 09:25 Ur Barbiturates Screen Negative ng/mL (Negative) 08/16/21 09:25 Ur Phencyclidine Scrn Negative ng/mL (Negative) 08/16/21 09:25 Ur Amphetamines Screen Negative ng/mL (Negative) 08/16/21 09:25 U Benzodiazepines Scrn Positive ng/mL (Negative) H 08/16/21 09:25 Urine Cocaine Screen Negative ng/mL (Negative) 08/16/21 09:25 U Marijuana (THC) Screen Positive ng/mL (Negative) H 08/16/21 09:25 Serum Ketones Negative (Negative) 08/16/21 10:00 Critical Care Time Critical Care Time: Critical Care Time: Yes Total Critical Care Time: 45 Attestation: Due to a high probability of clinically significant, possibly life threatening deterioration, the patient required my highest level of attention and preparedness to intervene emergently and I personally spent this critical care time directly and personally managing the patient. This critical care time included obtaining a history; examining the patient; pulse oximetry; ordering and review of laboratory and imaging studies; arranging urgent treatment with development of a management plan; evaluation of patient's response to treatment; frequent reassessment; and, discussions with other providers as applicable. It was exclusive of separately billable procedures. Primary systems involved are and immune Discharge Plan Discharge Patient Disposition: Admitted As Inpatient Admit Provider: Jacob Steele Clinical Impression: Severe sepsis, UTI (urinary tract infection), Pyelonephritis, Enteritis, ANASTASIA (acute kidney injury), Acidosis, lactic Condition: Stable Coding Level of Care Code ED Merchandise Clerk for Chg Fwd Exam Comprehensive
--- NOTE | 2021-08-16 09:00 | CT_ITS ---
WS: [id number] CT ABDOMEN AND PELVIS WITH CONTRAST HISTORY: R sided abdominal pain TECHNIQUE: Imaging performed of the abdomen and pelvis with IV contrast. Single phase imaging of the abdomen. Coronal and sagittal reformats are submitted. All CT scans at [facility] use at [address] one of these dose optimization techniques: automated exposure control; mA and/or kV adjustment per patient size (includes targeted exams where dose is matched to clinical indication); or iterative re construction. IV CONTRAST: Omnipaque 300; 95 mL IV. Oral contrast: No DLP: 2965.6 mGy.cm COMPARISON: 08/05/2021 Lower thorax: Lung bases are clear. Heart is normal size. No hiatal hernia. Liver/biliary system: Mildly enlarged liver with hepatic steatosis. No bile duct dilatation. Gallbladder: Normal. No gallstones or wall thickening. No pericholecystic fluid. Pancreas: Normal size pancreas and pancreatic duct. No adjacent inflammation. Spleen: Normal size spleen. No mass or infarct. Adrenal glands: Normal. Right kidney: Abnormal enhancement throughout the RIGHT kidney. Wedge-shaped areas of nonenhancement and mild renal enlargement. There has been a mild improvement in the perinephric stranding that was i dentified on 08/05/2021. There is no obstruction of the kidney. Low-attenuation nodule measuring 6 mm in the lower pole. Left kidney: Mildly enlarged kidney with perinephric stranding. Overall improvement in the perinephri c stranding since the prior study. There is abnormal enhancement of the kidney consistent with pyelon ephritis. There are multifocal areas of nonenhancement in the cortex consistent with cortical abscess es. There are multifocal abscesses with the largest measuring approximately 17 mm in the lower pole. No obstruction. Aorta: Normal size aorta. The origins and proximal SMA and celiac axis are poorly visualized due to m otion. Lymphadenopathy: Reactive lymphadenopathy in the retroperitoneum. Lymph nodes are subcentimeter. Free fluid: No free fluid. GI tract: Stomach is mildly distended with air fluid. There is extensive fluid dilatation of small theo wel. There is also extensive submucosal edema with thickening throughout the small bowel with mild hy peremia. Distal small bowel loops in the central pelvis are not quite as dilated as the remaining sma ll bowel. This is a new finding since the prior study. There is also mild shagginess of the colon wit h an area of persistent abnormality in the ascending colon. This was also described on the on the jefe or CT but there is less inflammation in the ascending colon than on the prior study. Abdominal wall: Unremarkable abdominal wall. No hernia. Pelvis: No free fluid or adenopathy within the pelvis. Bones: Unremarkable. CT/CT abdomen pelvis w con* [id number] IMPRESSION: 1. Abnormal enhancement throughout each kidney consistent with pyelonephritis and multifocal renal abscesses. Greater involvement of the LEFT kidney. No obst ruction or hydronephrosis. 2. The largest renal abscess measures 17 mm lower pole LEFT kidney. 3. Abnormal appearance to the small bowel is new since the prior examination. There is extensive submucosal edema and fluid distention of the small bowel. Th era findings can be seen with hypovolemic shock/ischemic changes. Consider post infectious causes. 4. Improved but persistent mild wall thickening and loss of the normal folds. Consider pseudomembranous colitis and infectious causes. As indicated on the pr ior examination colonoscopy to evaluate the RIGHT colon should be obtained. Notified Raiza Garza PA-C at 08/16/2021 11:26 AM.
[2021-08-16 10:08] LABS: Add Urine Culture? Yes; Add Urine Microscopic? YES; Bacteria Urine TRACE /hpf; Bilirubin Urine Neg (Negative); Blood Urine 2+ (Negative); Glucose Urine UA Norm (Normal); Ketones Urine Negative (Negative); Leukocyte Esterase Urine 2+ (Negative); Nitrate Urine Negative (Negative); Protein Urine 1+ (Negative); RBC Urine 0-4 /hpf (0-2); Specific Gravity, Urine 1.005 (1.005-1.030); Squamous Epithelial Cell Urine 0-4 /hpf (0-5); Urine Appearance Hazy (CLEAR); Urine Color Yellow (Yellow); Urobilinogen Urine Norm (Negative); WBC Urine >100 /hpf (0-5); pH Urine 6.5 (5-7)
[2021-08-16 10:18] LABS: Basophils # 0.1 10^3/uL (0.0-0.1); Basophils % 0.4 %; Eosinophils % 0.2 %; Hematocrit 45.6 % (37.0-47.0); Lymphocytes # 1.4 10^3/uL (0.8-4.8); Lymphocytes % 5.7 %; Mean Corpuscular HGB Conc 30.7 g/dL (30.0-36.0); Mean Corpuscular Hemoglobin 30.4 pg (28.0-34.0); Mean Corpuscular Volume 98.9 fl (81-99); Mean Platelet Volume 9.5 fL (7.4-10.4); Monocytes # 0.5 10^3/uL (0.2-0.9); Monocytes % 2.1 %; Neutrophils # 21.61 10^3/uL (1.8-7.7); Neutrophils % 90.8 %; Nucleated Red Blood Cells % 0 %; Platelet Count 227 10^3/cmm (130-400); Red Blood Count 4.61 10^6/uL (4.1-5.3); White Blood Count 23.8 10^3/uL (4.0-10.0)
[2021-08-16] MEDS: sodium chloride 0.9% 1,000 ML 999 ML IV (10:20)
[2021-08-16] MEDS: ondansetron 2 mg/ML SDV 2 mL 4 MG IVP ×2 (10:21→17:50)
[2021-08-16 10:35] LABS: Alanine Aminotransferase 23 U/L (0-33); Albumin Level 3.9 g/dL (3.5-5.2); Alkaline Phosphatase 200 IU/L (35-105); Anion Gap 26.3 (5-19); Aspartate Amino Transferase 40 U/L (0-32); Blood Urea Nitrogen 12 mg/dL (6-20); Calcium 11.4 mg/dL (8.5-10.5); Carbon Dioxide 20 mmol/L (22-29); Chloride 100 mmol/L (98-107); Globulin 5.8 g/dL (1.3-4.6); Glomerular Filtration Rate 35.2 mL/min (90-130); Glucose 191 mg/dL (65-115); Lipase 34 U/L (13-60); Osmolality Calculated 299 mOsm/kg (285-295); Potassium 4.3 mmol/L (3.5-5.1); Sodium 142 mmol/L (136-145); Total Bilirubin 0.5 mg/dL (0.15-1.2); Total Protein 9.7 g/dL (6.6-8.7)
[2021-08-16] MEDS: iohexol 300 mg/mL 100 mL Btl IV (10:41)
[2021-08-16 11:20] LABS: Slide Review Slide Review Perform
[2021-08-16 11:21] LABS: Amphetamines Screen Urine Negative (Negative); Barbiturates Screen Urine Negative (Negative); Benzodiazepines Screen Urine Positive (Negative); Cocaine Screen Urine Negative (Negative); Opiate Screen Urine Positive (Negative); PCP Screen Urine Negative (Negative); THC Screen Urine Positive (Negative)
[2021-08-16] MEDS: metoclopramide 5 mg/mL SDV 2 mL IVP ×2 (11:31→22:33)
--- NOTE | 2021-08-16 11:43 | ECG_ITS ---
[facility] Test Date: 2021-08-16 Pat Name: Kate Perkins Department: Room: Gender: Female Facility Manager Histology: : 1980 Requested By: Luis Enrique West Order Number: [id number] Franki MD: Celestine Hoskins M.D. Measurements Intervals [place] Rate: 157 P: 54 [place]: 115 QRS: 57 QRSD: 81 T: 65 QT: 303 QTc: 491 Interpretive Statements SINUS TACHYCARDIA WITH SHORT [place] INTERVAL, POSSIBLE ATRIAL FLUTTER NONSPECIFIC ST & T-WAVE ABNORMALITY No previous ECG available for comparison Electronically Signed On 08-16-2021 16:01:23 CDT by Celestine Hoskins M.D. [email or web address]
[2021-08-16 12:15] LABS: Lactic Sepsis W/Reflex 2.7 mmol/L (0.5-2.2)
[2021-08-16] MEDS: piperacillin-tazobactam 4.5 GM in sodium chloride 0.9% (plus) 50 ML IV (12:25)
[2021-08-16] MEDS: LORazepam 2 mg/mL INJ 1 mL 0.5 MG IVP (12:25)
[2021-08-16] MEDS: metroNIDAZOLE IV 500 MG/100 ML PREMIX 100 MG IV ×2 (12:27→19:21)
--- NOTE | 2021-08-16 13:16 | PM.HP ---
Providers/Chief Complaint Admitting Physician: Jacob Steele MD Chief Complaint: vomiting/diarrhea/abdominal pain/runny nose History of Present Illness Kate Perkins is a 41 year old female with a past medical history of anxiety, recent hospitalization for acute pyelonephritis, with E. coli bacteremia, who presents to [facility] due to worsening abdominal pain, right lower quadrant pain, right flank pain, with nausea, vomiting, fatigue, malaise, chills. Patient tells me that she continues to had a poor appetite and feeling nauseated continue to have diarrhea. Denies being . Does report dysuria, no vaginal discharge Review of Systems Const: Reports: fever(s), chills and fatigue; Denies: malaise Eyes: Denies: change in vision ENMT: Denies: nasal congestion Card: Reports: palpitations Resp: Denies: dyspnea, productive cough, non-productive cough or wheezing GI: Reports: abdominal pain; Denies: hematochezia or melena Musc: Denies: neck pain or back pain Neuro: Denies: headache(s), dizziness or vertigo Endo: Denies: polyuria or polydipsia Medications/Allergies Home Medications Medication Instructions Recorded Confirmed Last Taken Type alprazolam 2 mg tablet 2 mg PO TID PRN 08/05/21 08/16/21 Unknown History duloxetine 60 mg capsule,delayed 120 mg PO QAM 08/05/21 08/16/21 08/15/21 History release escitalopram oxalate 20 mg tablet 20 mg PO BEDTIME 08/05/21 08/16/21 08/15/21 History multivitamin 1 tab PO DAILY 08/05/21 08/16/21 Unknown History acetaminophen 500 mg tablet 500 mg PO Q6H PRN #20 tab 08/13/21 08/16/21 Unknown Rx (Acetaminophen Extra Strength) levofloxacin 500 mg tablet 500 mg PO DAILY 14 Days #14 tab 08/13/21 08/16/21 08/15/21 Rx ondansetron 4 mg disintegrating 4 mg PO Q6H PRN #20 tab 08/13/21 08/16/21 08/15/21 Rx tablet oxycodone-acetaminophen 5 mg-325 1 tab PO Q8H PRN #14 tab 08/13/21 08/16/21 08/15/21 Rx mg tablet (Percocet) Allergies Allergy/AdvReac Type Severity Reaction Status Date / Time tramadol [From Ultram] Allergy ADR-Seizure Verified 08/16/21 09:10 PFSH Acute PFSH: Medical History Acute kidney injury Acute pyelonephritis Diarrhea 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), onset a few years ago, occurs maybe once a month Hypokalemia Psychiatric care Sepsis Tobacco use Surgical History History of colposcopy with cervical biopsy Family History Mother Fibromyalgia Social History Smoking and tobacco status: current some day smoker cigarettes [ Other cigarette details: About a half a pack a day] Alcohol intake: current Alcohol intake frequency: few times a month Vitals/I&O/Wt Last Vital Signs Temp 99.4 F 08/16/21 12:42 Pulse 152 H 08/16/21 12:42 Resp 20 H 08/16/21 12:42 BP 109/64 08/16/21 13:01 Pulse Ox 95 08/16/21 12:42 08/15/21 08/16/21 08/16/21 22:59 06:59 14:59 Intake Total 1050 / 1050 Balance 1050 / 1050 Weight last 48 hrs Weight 77.111 kg Physical Exam Const: COMMON NORMALS: no acute distress and patient oriented x3 HENMT: COMMON NORMALS: normocephalic HEAD & SCALP: normocephalic OTHER: Poor dentition Eye: COMMON NORMALS: Equal, round and reactive pupils present Neck/C-Spine: COMMON NORMALS: no JVD Resp: COMMON NORMALS: normal respiratory effort, No retractions, No use of accessory muscles and clear to auscultation bilaterally AUSCULTATION: clear to auscultation bilaterally Cardio: COMMON NORMALS: no JVD, regular rate, regular rhythm, S1 normal heart sound present and S2 normal heart sound present RATE: regular rate RHYTHM: regular rhythm HEART SOUNDS: S1 normal heart sound present and S2 normal heart sound present GI: COMMON NORMALS: Normal to inspection, nondistended, normoactive bowel sounds present, Soft to palpation, No hepatosplenomegaly present, no masses and no bruits INSPECTION: Yes normal to inspection AUSCULTATION: Yes normoactive bowel sounds PALPATION: Yes Soft to palpation, Yes Tenderness to palpation present (GI) Details: RLQ and Yes No hepatosplenomegaly present OTHER: Right CVA tenderness Extremity: COMMON NORMALS: capillary refill normal, no clubbing, cyanosis or edema, no calf tenderness and no pedal edema Neuro: COMMON NORMALS: patient oriented x3 Psych: COMMON NORMALS: mental status grossly normal Data : 08/16/21 10:00 08/16/21 10:00 Micro: Microbiology 08/16/21 12:05 Blood Culture - Preliminary Blood SPECIMEN COLLECTED 08/16/21 11:56 Blood Culture - Preliminary Blood SPECIMEN COLLECTED A&P Assessment and plan (1) Severe sepsis: Status: Acute (2) UTI (urinary tract infection): Status: Acute (3) Pyelonephritis: Status: Acute (4) Enteritis: Status: Acute (5) ANASTASIA (acute kidney injury): Status: Acute (6) Acidosis, lactic: Status: Acute (7) Renal abscess: Status: Acute (8) Diarrhea: Status: Acute Plan Pyelonephritis with multifocal renal abscesses, greater involvement of left kidney, largest renal abscess measuring 17 mm in the lower lobe left kidney - discussed with Dr. Davies, no drainable abscess, -Continue Zosyn for antibiotic coverage, add Flagyl for anaerobic coverage -Follow urine cultures, blood cultures -Full code -Lovenox for DVT prophylaxis Severe sepsis secondary pyelonephritis as above ANASTASIA secondary to pyelonephritis, IV fluids Lactic acidosis, as above Tachycardia, secondary to pyelonephritis as above Diarrhea 3.? Abnormal appearance to the small bowel is new since the prior examination. There is extensive submucosal edema and fluid distention of the small bowel. These findings can be seen with hypovolemic shock/ischemic changes. Consider postinfectious causes. 4.? Improved but persistent mild wall thickening and loss of the normal folds. Consider pseudomembranous colitis and infectious causes. As indicated on the prior examination colonoscopy to evaluate the RIGHT colon should be obtained. -During last hospitalization had complains of diarrhea, C. difficile negative -Given that she continues to complain of diarrhea, and she was discharged on Levaquin, highly concerning for C. difficile colitis -Started on p.o. vancomycin -Follow-up stool studies -Serial abdominal exams -IV fluids Attestations Medical Necessity Statement*: Patient requires hospitalization, ICU, for right pyelonephritis, with abscesses, with concerns for C. difficile colitis, inpatient, greater than 2 midnights Coding Level of Care Code Acute Cushion Former for Chg Fwd Diagnoses Severe sepsis A41.9; R65.20 UTI (urinary tract infection) N39.0 Pyelonephritis N12 Enteritis K52.9 ANASTASIA (acute kidney injury) N17.9 Acidosis, lactic E87.2 Renal abscess N15.1 Diarrhea R19.7
[2021-08-16 13:37] LABS: Reflex Lactate Order REFLEX LACTIC ORDERD
[2021-08-16 13:44] LABS: Thyroid Stimulating Hormone 1.14 uIU/mL (0.27-4.20)
[2021-08-16] MEDS: enoxaparin 40 mg/0.4 mL Syringe SUBCUT (13:47)
[2021-08-16] MEDS: pantoprazole 40 mg SDV IVP (13:47)
[2021-08-16] MEDS: sodium chloride 0.9% 1,000 ML 125 ML IV ×2 (13:47→22:12)
--- NOTE | 2021-08-16 14:03 | PC.NURSE ---
Patient arrived to ICU from ER at 1338. Patient
--- NOTE | 2021-08-16 15:57 | ECG_ITS ---
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 Measurements Intervals [place] Rate: 145 P: 59 NC: 133 QRS: 59 QRSD: 75 T: 71 QT: 327 QTc: 508 Interpretive Statements SINUS TACHYCARDIA NONSPECIFIC T-WAVE ABNORMALITY Compared to ECG 08/16/2021 11:50:09 No significant changes Electronically Signed On 08-16-2021 22:41:42 CDT by Celestine Hoskins M.D. [email or web address] [id number]
[2021-08-16] MEDS: sodium chloride 0.9% 500 ML 999 ML IV (16:09)
[2021-08-16 16:18] LABS: Magnesium 1.6 mg/dL (1.7-2.3)
[2021-08-16 16:53] LABS: Troponin(5th) Baseline 24 ng/L (0-10)
[2021-08-16] MEDS: piperacillin-tazobactam 3.375 GM in sodium chloride 0.9% (plus) 50 ML IV (17:06)
[2021-08-16] MEDS: acetaminophen 325 mg Tablet 650 MG PO ×2 (17:11→23:39)
[2021-08-16] MEDS: magnesium sulfate premix 4 GM/100 ML PREMIX IV (17:26)
--- NOTE | 2021-08-16 17:31 | PC.NURSE ---
Patient remains nausous, 3 times vomiting since arriving to ICU. Diet is clear liquid
--- NOTE | 2021-08-16 17:57 | ECG_ITS ---
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 Measurements Intervals [place] Rate: 140 P: 53 UT: 117 QRS: 60 QRSD: 80 T: 72 QT: 328 QTc: 502 Interpretive Statements SINUS TACHYCARDIA WITH SHORT UT INTERVAL MODERATE VOLTAGE CRITERIA FOR LVH, CONSIDER NORMAL VARIANT [MEETS CRITERIA IN ONE OF: R(aVL), S(V1), R(V5), R(V5/V6)+S(V1)] NONSPECIFIC ST & T-WAVE ABNORMALITY Compared to ECG 08/16/2021 16:18:17 No significant changes Electronically Signed On 08-16-2021 22:43:17 CDT by Celestine Hoskins M.D. [email or web address] [email or web address] Electriccleveland clinic [email or web address].[email or web address]/store/[id number]
[2021-08-16 18:06] LABS: Ketone (Acetest) Serum Negative (Negative)
[2021-08-16 19:07] LABS: Troponin 5 2HR 23.35 ng/L (0-10)
[2021-08-16 19:10] LABS: Troponin 5 2HR Delta -0.65 ABS# (0-10)
[2021-08-16 19:57] LABS: Estmated Average Glucose 114; Hemoglobin A1C 5.6 % (4.0-6.0)
[2021-08-16] MEDS: escitalopram 10 mg Tablet 20 MG PO (20:15)
--- NOTE | 2021-08-16 21:20 | PC.NURSE ---
Bedside Commode Patient's HR displaying 166 on the monitor. Upon assessment, patient sitting on bedside commode. Patient able to transfer back to bed with standby assist. HR remained in the 160s for several seconds before settling to previous tachycardic rate of 130-140s. Education provided to patient regarding using the call light to ask for assistance to use bedside commode, patient verbalized understanding. Stool/urine mix charted in patient's I&O.
[2021-08-16 21:51] LABS: Glucose Point of Care 161 mg/dL (70-110)
--- NOTE | 2021-08-16 21:57 | ECG_ITS ---
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 Measurements Intervals [place] Rate: 121 P: 59 OR: 133 QRS: 64 QRSD: 86 T: 79 QT: 352 QTc: 501 Interpretive Statements SINUS TACHYCARDIA VOLTAGE CRITERIA FOR LVH [MEETS CRITERIA IN ONE OF: R(aVL), S(V1), R(V5), R(V5/V6)+S(V1)] NONSPECIFIC T-WAVE ABNORMALITY Compared to ECG 08/16/2021 18:01:11 Short OR interval no longer present T-wave abnormality still present Electronically Signed On 08-16-2021 23:04:45 CDT by Celestine Hoskins M.D. [email or web address]/[id number]
--- NOTE | 2021-08-16 23:30 | PC.NURSE ---
Temperature Patient's temperature 101.4F orally. Blankets removed and tylenol administered per protocol. Temperature to be monitored.
--- NOTE | 2021-08-16 23:40 | PC.NURSE ---
Urine Sample/Troponin Uncollected urine sample ordered for patient. Patient has had multiple loose, watery bowel movements with urine mixed in. Clean sample unable to be obtained. Additionally, patient's 6 hour troponin unable to be collected by lab. At 2302 Dr. Burns notified; telephone orders received to allow collection of urine sample by straight cath and to re-time the troponin for 0400 on 08/17/21. Lab retimed. Straight cath performed with sterile procedure at 2305, no urine able to be collected. Approximately 30 minutes later, patient able to void small amount for urine sample. Sample sent to lab for testing.
[2021-08-17] VITALS (28 sets, daily range): BP systolic 102–168; BP diastolic 54–98; PULSE 83–137; RESP 13–35; TEMP 36.5–37.1; O2SAT 93–100; BMI 24.3
[2021-08-17] MEDS: piperacillin-tazobactam 3.375 GM in sodium chloride 0.9% (plus) 50 ML IV ×3 (01:09→17:12)
[2021-08-17] MEDS: metroNIDAZOLE IV 500 MG/100 ML PREMIX 100 MG IV ×3 (03:11→21:35)
[2021-08-17 03:47] LABS: Basophils # 0.1 10^3/uL (0.0-0.1); Basophils % 0.4 %; Eosinophils % 0.2 %; Hematocrit 37.1 % (37.0-47.0); Hemoglobin 11.3 g/dL (11.5-15.3); Lymphocytes # 0.5 10^3/uL (0.8-4.8); Lymphocytes % 4.3 %; Mean Corpuscular HGB Conc 30.5 g/dL (30.0-36.0); Mean Corpuscular Hemoglobin 30.5 pg (28.0-34.0); Mean Corpuscular Volume 100.3 fl (81-99); Mean Platelet Volume 9.9 fL (7.4-10.4); Monocytes # 0.4 10^3/uL (0.2-0.9); Monocytes % 3.1 %; Neutrophils # 10.58 10^3/uL (1.8-7.7); Neutrophils % 91.4 %; Nucleated Red Blood Cells % 0 %; Platelet Count 211 10^3/cmm (130-400); Red Cell Distribution Width 14.5 % (12.1-15.1); White Blood Count 11.6 10^3/uL (4.0-10.0)
[2021-08-17 04:05] LABS: Troponin T (5th) Once 17 ng/L (0-10)
[2021-08-17 04:12] LABS: Alanine Aminotransferase 10 U/L (0-33); Albumin Level 2.5 g/dL (3.5-5.2); Alkaline Phosphatase 126 IU/L (35-105); Anion Gap 15.8 (5-19); Aspartate Amino Transferase 11 U/L (0-32); Blood Urea Nitrogen 17 mg/dL (6-20); Calcium 8.5 mg/dL (8.5-10.5); Carbon Dioxide 18 mmol/L (22-29); Chloride 113 mmol/L (98-107); Globulin 3.7 g/dL (1.3-4.6); Glomerular Filtration Rate 32.8 mL/min (90-130); Glucose 134 mg/dL (65-115); Magnesium 2.7 mg/dL (1.7-2.3); Osmolality Calculated 300 mOsm/kg (285-295); Phosphorus 4.5 mg/dL (2.5-4.5); Potassium 3.8 mmol/L (3.5-5.1); Sodium 143 mmol/L (136-145); Total Bilirubin 0.2 mg/dL (0.15-1.2); Total Protein 6.2 g/dL (6.6-8.7)
[2021-08-17] MEDS: duloxetine 60 mg Capsule 120 MG PO (05:43)
[2021-08-17] MEDS: sodium chloride 0.9% 1,000 ML 125 ML IV (07:05)
[2021-08-17 07:30] LABS: Glucose Point of Care 113 mg/dL (70-110)
[2021-08-17] MEDS: multivitamin therapeutic Tablet 1 TAB PO (08:34)
--- NOTE | 2021-08-17 10:12 | P.PN_ITS ---
Subjective Subjective: Patient was seen this morning, she tells me that she is hungry, she would like to try to eat something, more substantial, no nausea, no vomiting, her abdominal pain and flank pain have resolved, afebrile for the last 12 hours, no chest pain overnight Vitals/I&O/Wt Last Vital Signs Temp 98.3 F 08/17/21 10:00 Pulse 96 08/17/21 10:00 Resp 20 H 08/17/21 10:00 BP 144/85 08/17/21 10:00 Pulse Ox 98 08/17/21 10:00 08/16/21 08/17/21 08/17/21 22:59 06:59 14:59 Intake Total 3051 / 4201 1981.000 / 6182.000 1320 / 1320 Output Total 3075 / 3075 700 / 3775 500 / 500 Balance -24 / 1126 1281.000 / 2407.000 820 / 820 Weight last 48 hrs Weight 77.111 kg Weight 77.111 kg Physical Exam Const: COMMON NORMALS: no acute distress and patient oriented x3 Resp: COMMON NORMALS: normal respiratory effort, No retractions, No use of accessory muscles and clear to auscultation bilaterally AUSCULTATION: clear to auscultation bilaterally Cardio: COMMON NORMALS: regular rate, regular rhythm, S1 normal heart sound present and S2 normal heart sound present RATE: regular rate RHYTHM: regular rhythm HEART SOUNDS: S1 normal heart sound present and S2 normal heart sound present GI: COMMON NORMALS: Normal to inspection, nondistended, normoactive bowel sounds present, Soft to palpation, non-tender and No hepatosplenomegaly present PALPATION: Yes Soft to palpation and Yes No hepatosplenomegaly present Extremity: COMMON NORMALS: no pedal edema Neuro: COMMON NORMALS: patient oriented x3 Psych: COMMON NORMALS: mental status grossly normal Data : 08/17/21 03:24 08/17/21 03:24 Micro: Microbiology 08/16/21 22:45 Stool Lactoferrin - Final Stool Enteric Pathogens (PCR) - Final C.difficile Toxin B Gene (PCR) - Final Occult Blood (FIT) - Final 08/16/21 09:25 Urine Culture - Preliminary Urine,Clean Catch 08/16/21 12:05 Blood Culture - Preliminary Blood SPECIMEN COLLECTED 08/16/21 11:56 Blood Culture - Preliminary Blood SPECIMEN COLLECTED A&P Assessment and plan (1) Severe sepsis: Status: Acute (2) UTI (urinary tract infection): Status: Acute (3) Pyelonephritis: Status: Acute (4) Enteritis: Status: Acute (5) ANASTASIA (acute kidney injury): Status: Acute (6) Acidosis, lactic: Status: Acute (7) Renal abscess: Status: Acute (8) Diarrhea: Status: Acute Plan Pyelonephritis with multifocal renal abscesses, greater involvement of left kidney, largest renal abscess measuring 17 mm in the lower lobe left kidney - discussed with Dr. Davies, no drainable abscess, -Continue Zosyn for antibiotic coverage, on Flagyl for anaerobic coverage -Follow urine cultures, blood cultures -Full code -Lovenox for DVT prophylaxis Sinus tachycardia, EKG showed possible atrial flutter, but look more like sinus to me -Likely secondary sepsis -Heart rates have significant improved -Mag given for hypomagnesemia yesterday -No chest pain complaints Severe sepsis secondary pyelonephritis as above ANASTASIA secondary to pyelonephritis, IV fluids Lactic acidosis, as above NSTEMI, likely supply demand ischemia from sepsis, pyelonephritis, continue to monitor Diarrhea 3.? Abnormal appearance to the small bowel is new since the prior examination. There is extensive submucosal edema and fluid distention of the small bowel. These findings can be seen with hypovolemic shock/ischemic changes. Consider postinfectious causes. 4.? Improved but persistent mild wall thickening and loss of the normal folds. Consider pseudomembranous colitis and infectious causes. As indicated on the prior examination colonoscopy to evaluate the RIGHT colon should be obtained. -During last hospitalization had complains of diarrhea, C. difficile negative -Given that she continues to complain of diarrhea, and she was discharged on Levaquin, highly concerning for C. difficile colitis -Started on p.o. vancomycin -Follow-up stool studies -Serial abdominal exams -IV fluids Attestations Medical Necessity Statement*: Patient requires hospitalization for sepsis secondary to bilateral pyelonephritis with abscess, enteritis Coding Level of Care Code Acute Spa Technician for [facility] Diagnoses Severe sepsis A41.9; R65.20 UTI (urinary tract infection) N39.0 Pyelonephritis N12 Enteritis K52.9 ANASTASIA (acute kidney injury) N17.9 Acidosis, lactic E87.2 Renal abscess N15.1 Diarrhea R19.7
[2021-08-17 10:56] LABS: Glucose Point of Care 115 mg/dL (70-110)
[2021-08-17] MEDS: pantoprazole 40 mg SDV IVP (14:20)
[2021-08-17] MEDS: enoxaparin 40 mg/0.4 mL Syringe SUBCUT (14:20)
[2021-08-17] MEDS: ALPRAZolam 0.5 mg Tablet 2 MG PO ×2 (15:13→22:45)
[2021-08-17 17:03] LABS: Glucose Point of Care 206 mg/dL (70-110)
[2021-08-17] MEDS: sodium chloride 0.9% 1,000 ML 75 ML IV (19:33)
[2021-08-17] MEDS: escitalopram 10 mg Tablet 20 MG PO (20:16)
[2021-08-17] MEDS: ondansetron 2 mg/ML SDV 2 mL 4 MG IVP (23:06)
[2021-08-18] VITALS (12 sets, daily range): BP systolic 124–142; BP diastolic 84–90; PULSE 70–98; RESP 16–18; TEMP 36.5–36.9; O2SAT 96–100
[2021-08-18] MEDS: piperacillin-tazobactam 3.375 GM in sodium chloride 0.9% (plus) 50 ML IV ×3 (01:28→17:34)
[2021-08-18] MEDS: metoclopramide 5 mg/mL SDV 2 mL IVP (01:48)
[2021-08-18] MEDS: morphine 4 mg/mL SDV 1 mL 2 MG IVP ×4 (02:05→23:05)
--- NOTE | 2021-08-18 04:04 | PC.NURSE ---
SHIFT NOTE Pt has had multiple watery BM's tonight mixed with urine. Says she does not have much warning with BM's and sometimes barely makes it to BSC. Has also had nausea with vomiting ezra after she takes the po Vancomycin. Says it just makes her sick. Had been drinking large quantity of juices and sodas at bedside brought in by lobito. Emesis dark but had been drinking grape juice and cola. No visible blood noted. Enc pt and discussed with her that she should slow down with po intake and do sips of clear liquids and ice chips for awhile. Received both IV Zofran and Reglan. Had return of right flank pain this am and received dose of IV Morphine. Abdomen is soft with some generalized tenderness present. IV infusing at 75ml/hr rate. Reciving IV Flagyl and Zosyn.
[2021-08-18] MEDS: metroNIDAZOLE IV 500 MG/100 ML PREMIX 100 MG IV (04:24)
[2021-08-18 05:55] LABS: Basophils # 0.1 10^3/uL (0.0-0.1); Basophils % 0.8 %; Eosinophils % 0.1 %; Hematocrit 35.5 % (37.0-47.0); Hemoglobin 10.4 g/dL (11.5-15.3); Lymphocytes # 2.1 10^3/uL (0.8-4.8); Lymphocytes % 27.1 %; Mean Corpuscular HGB Conc 29.3 g/dL (30.0-36.0); Mean Corpuscular Hemoglobin 30.7 pg (28.0-34.0); Mean Corpuscular Volume 104.7 fl (81-99); Mean Platelet Volume 9.9 fL (7.4-10.4); Monocytes # 0.6 10^3/uL (0.2-0.9); Monocytes % 8.4 %; Neutrophils # 4.83 10^3/uL (1.8-7.7); Neutrophils % 63.1 %; Nucleated Red Blood Cells % 0 %; Platelet Count 398 10^3/cmm (130-400); Red Blood Count 3.39 10^6/uL (4.1-5.3); Red Cell Distribution Width 14.4 % (12.1-15.1); White Blood Count 7.7 10^3/uL (4.0-10.0)
[2021-08-18] MEDS: duloxetine 60 mg Capsule 120 MG PO (06:01)
[2021-08-18] MEDS: ALPRAZolam 0.5 mg Tablet 2 MG PO ×3 (06:02→23:07)
[2021-08-18 06:17] LABS: Alanine Aminotransferase 13 U/L (0-33); Albumin Level 2.7 g/dL (3.5-5.2); Alkaline Phosphatase 117 IU/L (35-105); Aspartate Amino Transferase 27 U/L (0-32); Blood Urea Nitrogen 12 mg/dL (6-20); Calcium 9.2 mg/dL (8.5-10.5); Carbon Dioxide 15 mmol/L (22-29); Chloride 122 mmol/L (98-107); Globulin 3.8 g/dL (1.3-4.6); Glucose 118 mg/dL (65-115); Magnesium 2.2 mg/dL (1.7-2.3); Osmolality Calculated 311 mOsm/kg (285-295); Phosphorus 4.8 mg/dL (2.5-4.5); Sodium 150 mmol/L (136-145); Total Bilirubin 0.2 mg/dL (0.15-1.2); Total Protein 6.5 g/dL (6.6-8.7)
[2021-08-18 06:19] LABS: Anion Gap 16.1 (5-19); Potassium 3.1 mmol/L (3.5-5.1)
[2021-08-18 06:45] LABS: Glucose Point of Care 110 mg/dL (70-110)
[2021-08-18 08:44] LABS: Glucose Point of Care 107 mg/dL (70-110)
[2021-08-18] MEDS: potassium chloride ER 20 mEq Tablet 40 MEQ PO (08:50)
[2021-08-18] MEDS: multivitamin therapeutic Tablet 1 TAB PO (08:51)
[2021-08-18] MEDS: acetaminophen 325 mg Tablet 650 MG PO (09:06)
--- NOTE | 2021-08-18 09:27 | P.PN_ITS ---
Subjective Subjective: Patient was seen this morning, she sitting up in bed, she tells that she is lactose intolerant, she cannot drink the milk that was provided, she would like to try something more substantial, her abdominal pain and flank pain is resolving, afebrile overnight, alert oriented x3, no headache, no blurry vision Vitals/I&O/Wt Last Vital Signs Temp 98.0 F 08/18/21 07:52 Pulse 93 08/18/21 07:52 Resp 16 08/18/21 07:52 BP 141/90 08/18/21 07:52 Pulse Ox 96 08/18/21 07:52 08/17/21 08/18/21 08/18/21 22:59 06:59 14:59 Intake Total 1250 / 2620 750 / 3370 Output Total 2800 / 3300 2000 / 5300 Balance -1550 / -680 -1250 / -1930 Weight last 48 hrs Weight 81.193 kg Weight 77.111 kg Physical Exam Const: COMMON NORMALS: no acute distress and patient oriented x3 Resp: COMMON NORMALS: normal respiratory effort, No retractions, No use of accessory muscles and clear to auscultation bilaterally AUSCULTATION: clear to auscultation bilaterally Cardio: COMMON NORMALS: regular rate, regular rhythm, S1 normal heart sound present and S2 normal heart sound present RATE: regular rate RHYTHM: regular rhythm HEART SOUNDS: S1 normal heart sound present and S2 normal heart sound present GI: COMMON NORMALS: Normal to inspection, nondistended, normoactive bowel sounds present, Soft to palpation, non-tender and No hepatosplenomegaly present PALPATION: Yes Soft to palpation and Yes No hepatosplenomegaly present Extremity: COMMON NORMALS: no pedal edema Neuro: COMMON NORMALS: patient oriented x3 Psych: COMMON NORMALS: mental status grossly normal Data : 08/18/21 05:45 08/18/21 05:45 Micro: Microbiology 08/16/21 09:25 Urine Culture - Final Urine,Clean Catch 08/16/21 12:05 Blood Culture - Preliminary Blood NEGATIVE TO DATE 08/16/21 11:56 Blood Culture - Preliminary Blood NEGATIVE TO DATE 08/16/21 22:45 Stool Lactoferrin - Final Stool Enteric Pathogens (PCR) - Final Parasite Antigen Panel - Final C.difficile Toxin B Gene (PCR) - Final Occult Blood (FIT) - Final 08/16/21 23:20 Chlamydia trachomatis ([facility]) - Final Urine Random Neisseria gonorrhoeae ([facility]) - Final Trichomonas vaginalis ([facility] - Final A&P Assessment and plan (1) Severe sepsis: Status: Acute (2) UTI (urinary tract infection): Status: Acute (3) Pyelonephritis: Status: Acute (4) Enteritis: Status: Acute (5) ANASTASIA (acute kidney injury): Status: Acute (6) Acidosis, lactic: Status: Acute (7) Renal abscess: Status: Acute (8) Diarrhea: Status: Acute (9) Hypernatremia: Status: Acute Plan Hypernatremia -Serum sodium 150 -Increase IV fluids to 125 cc -Advance diet Pyelonephritis with multifocal renal abscesses, greater involvement of left kidney, largest renal abscess measuring 17 mm in the lower lobe left kidney - discussed with Dr. Davies, no drainable abscess, -Continue Zosyn for antibiotic coverage stop Flagyl -Follow urine cultures, blood cultures -Full code -Lovenox for DVT prophylaxis Sinus tachycardia, EKG showed possible atrial flutter, but look more like sinus to me -Likely secondary sepsis -Heart rates have significant improved -Mag given for hypomagnesemia yesterday -No chest pain complaints Severe sepsis secondary pyelonephritis as above ANASTASIA secondary to pyelonephritis, IV fluids Lactic acidosis, as above NSTEMI, likely supply demand ischemia from sepsis, pyelonephritis, continue to monitor Diarrhea 3.? Abnormal appearance to the small bowel is new since the prior examination. There is extensive submucosal edema and fluid distention of the small bowel. These findings can be seen with hypovolemic shock/ischemic changes. Consider postinfectious causes. 4.? Improved but persistent mild wall thickening and loss of the normal folds. Consider pseudomembranous colitis and infectious causes. As indicated on the prior examination colonoscopy to evaluate the RIGHT colon should be obtained. -During last hospitalization had complains of diarrhea, C. difficile negative -Given that she continues to complain of diarrhea, and she was discharged on Levaquin, highly concerning for C. difficile colitis -Stool studies are negative for C. difficile, but still highly suspicious -Continue on p.o. vancomycin -Will require a colonoscopy at some point for evaluation of ulcerative colitis or Crohn's disease -Serial abdominal exams -IV fluids Attestations Medical Necessity Statement*: Patient requires hospitalization for pyelonephritis, hypernatremia, sepsis Coding Level of Care Code Acute Roofing Tile Sorter for g Fwd Diagnoses Severe sepsis A41.9; R65.20 UTI (urinary tract infection) N39.0 Pyelonephritis N12 Enteritis K52.9 ANASTASIA (acute kidney injury) N17.9 Acidosis, lactic E87.2 Renal abscess N15.1 Diarrhea R19.7 Hypernatremia E87.0
[2021-08-18 12:05] LABS: Glucose Point of Care 109 mg/dL (70-110)
[2021-08-18] MEDS: sodium chloride 0.9% 1,000 ML 125 ML IV ×2 (13:09→20:58)
[2021-08-18] MEDS: enoxaparin 40 mg/0.4 mL Syringe SUBCUT (14:17)
[2021-08-18] MEDS: pantoprazole 40 mg SDV IVP (14:26)
[2021-08-18 17:19] LABS: Glucose Point of Care 131 mg/dL (70-110)
--- NOTE | 2021-08-18 19:01 | PC.NURSE ---
Notified Dr Steele that pt sodium was 150 and had NS at 125mL/hr. Dr stated to continue for now d/t him believing the pt is dehydrated. will continue to monitor, informed clip and hanger attacher nurse as well during shift report.
[2021-08-18] MEDS: escitalopram 10 mg Tablet 20 MG PO (20:38)
[2021-08-19] VITALS (10 sets, daily range): BP systolic 126–147; BP diastolic 69–81; PULSE 61–85; RESP 16–17; TEMP 36.4–36.9; O2SAT 96–99
[2021-08-19] MEDS: piperacillin-tazobactam 3.375 GM in sodium chloride 0.9% (plus) 50 ML IV ×3 (02:37→17:38)
[2021-08-19] MEDS: sodium chloride 0.9% 1,000 ML 125 ML IV ×2 (05:01→14:15)
[2021-08-19] MEDS: duloxetine 60 mg Capsule 120 MG PO (05:37)
[2021-08-19 05:39] LABS: Alanine Aminotransferase 12 U/L (0-33); Albumin Level 2.3 g/dL (3.5-5.2); Alkaline Phosphatase 92 IU/L (35-105); Anion Gap 14.3 (5-19); Aspartate Amino Transferase 20 U/L (0-32); Blood Urea Nitrogen 7 mg/dL (6-20); Calcium 8.5 mg/dL (8.5-10.5); Carbon Dioxide 15 mmol/L (22-29); Chloride 113 mmol/L (98-107); Globulin 3.4 g/dL (1.3-4.6); Glomerular Filtration Rate 44.7 mL/min (90-130); Glucose 79 mg/dL (65-115); Magnesium 1.6 mg/dL (1.7-2.3); Osmolality Calculated 285 mOsm/kg (285-295); Potassium 3.3 mmol/L (3.5-5.1); Sodium 139 mmol/L (136-145); Total Bilirubin 0.2 mg/dL (0.15-1.2); Total Protein 5.7 g/dL (6.6-8.7)
[2021-08-19 06:25] LABS: Glucose Point of Care 130 mg/dL (70-110)
[2021-08-19 06:51] LABS: Basophils # 0.1 10^3/uL (0.0-0.1); Eosinophils # 0.3 10^3/uL (0.0-0.8); Eosinophils % 3.1 %; Hematocrit 34.9 % (37.0-47.0); Hemoglobin 10.3 g/dL (11.5-15.3); Lymphocytes # 2.8 10^3/uL (0.8-4.8); Lymphocytes % 27.7 %; Mean Corpuscular HGB Conc 29.5 g/dL (30.0-36.0); Mean Corpuscular Hemoglobin 30.2 pg (28.0-34.0); Mean Corpuscular Volume 102.3 fl (81-99); Mean Platelet Volume 10.2 fL (7.4-10.4); Monocytes # 0.6 10^3/uL (0.2-0.9); Monocytes % 6.1 %; Neutrophils # 6.23 10^3/uL (1.8-7.7); Neutrophils % 61.7 %; Nucleated Red Blood Cells % 0 %; Platelet Count 302 10^3/cmm (130-400); Red Blood Count 3.41 10^6/uL (4.1-5.3); Red Cell Distribution Width 14.1 % (12.1-15.1); White Blood Count 10.1 10^3/uL (4.0-10.0)
[2021-08-19 07:12] LABS: Glucose Point of Care 83 mg/dL (70-110)
[2021-08-19] MEDS: multivitamin therapeutic Tablet 1 TAB PO (09:24)
[2021-08-19 11:46] LABS: Glucose Point of Care 96 mg/dL (70-110)
[2021-08-19] MEDS: enoxaparin 40 mg/0.4 mL Syringe SUBCUT (14:14)
[2021-08-19] MEDS: morphine 4 mg/mL SDV 1 mL 2 MG IVP (14:32)
[2021-08-19] MEDS: pantoprazole 40 mg SDV IVP (14:32)
[2021-08-19] MEDS: ALPRAZolam 0.5 mg Tablet 2 MG PO ×2 (14:33→21:16)
[2021-08-19 17:23] LABS: Glucose Point of Care 94 mg/dL (70-110)
--- NOTE | 2021-08-19 20:06 | PM.PN ---
Subjective Medications: Medication Review Details: States she is still having some right lower quadrant/flank pain, but it is becoming more intermittent. Denies nausea vomiting. No chest pain or pressure. No shortness of breath. On entering the room with cigarette smoke which she states is due to her boyfriend going to smoke outside. Reminded them smoking strictly forbidden in the hospital. They verbalized understanding and are not smoking in the room. Vitals/I&O/Wt Last Vital Signs Temp 97.6 F 08/19/21 15:17 Pulse 72 08/19/21 15:17 Resp 16 08/19/21 15:17 BP 128/69 08/19/21 15:17 Pulse Ox 98 08/19/21 15:17 08/19/21 08/19/21 08/19/21 06:59 14:59 22:59 Intake Total 1290 / 4827.083 2049 500 / 2550 Output Total 900 / 900 1700 / 1700 Balance 390 / 3927.083 2049 -1200 / 850 Weight last 48 hrs Weight 86.001 kg Weight 81.193 kg Physical Exam Const: COMMON NORMALS: alert GENERAL APPEARANCE: cooperative ORIENTATION/CONSCIOUSNESS: Yes awake HENMT: COMMON NORMALS: normocephalic, EAC's normal, Normal external nose present and moist oral mucous membranes HEAD & SCALP: normocephalic NOSE: Normal external nose present EXTERNAL AUDITORY CANAL: EAC's normal Neck/C-Spine: COMMON NORMALS: no meningeal signs Chest: CHEST: Yes Symmetrical chest wall rise Resp: COMMON NORMALS: clear to auscultation bilaterally AUSCULTATION: clear to auscultation bilaterally Cardio: COMMON NORMALS: regular rate, regular rhythm and No murmurs present (Cardio) RATE: regular rate RHYTHM: regular rhythm GI: COMMON NORMALS: Normal to inspection, nondistended, normoactive bowel sounds present, Soft to palpation and non-tender PALPATION: Yes Soft to palpation Extremity: COMMON NORMALS: no pedal edema Neuro: COMMON NORMALS: moves all extremities SENSORIUM/ORIENTATION: Yes alert MENINGEAL SIGNS: Yes no meningeal signs Psych: COMMON NORMALS: mental status grossly normal Skin: COMMON NORMALS: no wounds RASHES: no rashes Data : 08/19/21 04:25 08/19/21 04:25 A&P Assessment and plan (1) Severe sepsis: Overall she is improving. Today slightly worse leukocytosis at 10.1. She is afebrile, tachycardia appears to have resolved. Symptoms improving. Renal function appears to be improving as well, creatinine down to 1.3. De-escalate IV fluid. We will transition to oral antibiotic. If continues to do well, possible discharge tomorrow. Status: Acute (2) UTI (urinary tract infection): Transition to Cipro Status: Acute (3) Pyelonephritis: Transition to Cipro Status: Acute (4) Enteritis: Status: Acute (5) ANASTASIA (acute kidney injury): Status: Acute (6) Acidosis, lactic: Status: Acute (7) Renal abscess: Status: Acute (8) Diarrhea: With reported suspicion of C. difficile colitis, continue oral vancomycin Status: Acute (9) Hypernatremia: Resolved Status: Acute Plan Hypomagnesemia: Replace Sinus tachycardia, resolved -Likely secondary sepsis Severe sepsis secondary pyelonephritis as above: Resolved ANASTASIA secondary to pyelonephritis, improving. DC IV fluids. Recheck renal function in the morning. Lactic acidosis, as above NSTEMI, likely supply demand ischemia from sepsis, pyelonephritis, continue to monitor Diarrhea 3.? Abnormal appearance to the small bowel is new since the prior examination. There is extensive submucosal edema and fluid distention of the small bowel. These findings can be seen with hypovolemic shock/ischemic changes. Consider postinfectious causes. 4.? Improved but persistent mild wall thickening and loss of the normal folds. Consider pseudomembranous colitis and infectious causes. As indicated on the prior examination colonoscopy to evaluate the RIGHT colon should be obtained. -During last hospitalization had complains of diarrhea, C. difficile negative -Given that she continues to complain of diarrhea, and she was discharged on Levaquin, highly concerning for C. difficile colitis -Stool studies are negative for C. difficile, but still highly suspicious -Continue on p.o. 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
[2021-08-19] MEDS: escitalopram 10 mg Tablet 20 MG PO (21:09)
[2021-08-19] MEDS: ciprofloxacin 500 mg Tablet PO (21:16)
[2021-08-19] MEDS: magnesium sulfate premix 2 GM/50 ML PIGGYBACK IV (21:16)
[2021-08-20] VITALS (8 sets, daily range): BP systolic 130–151; BP diastolic 78–99; PULSE 77–93; RESP 16–18; TEMP 36.4–36.9; O2SAT 96–97
[2021-08-20] MEDS: duloxetine 60 mg Capsule 120 MG PO (05:47)
[2021-08-20 06:06] LABS: Basophils # 0.1 10^3/uL (0.0-0.1); Basophils % 1.2 %; Eosinophils # 0.3 10^3/uL (0.0-0.8); Eosinophils % 3.6 %; Hematocrit 33.4 % (37.0-47.0); Hemoglobin 10.1 g/dL (11.5-15.3); Lymphocytes % 35.1 %; Mean Corpuscular HGB Conc 30.2 g/dL (30.0-36.0); Mean Corpuscular Hemoglobin 30.4 pg (28.0-34.0); Mean Corpuscular Volume 100.6 fl (81-99); Mean Platelet Volume 10.1 fL (7.4-10.4); Monocytes # 0.5 10^3/uL (0.2-0.9); Monocytes % 5.6 %; Neutrophils # 4.67 10^3/uL (1.8-7.7); Neutrophils % 54.2 %; Nucleated Red Blood Cells % 0 %; Platelet Count 363 10^3/cmm (130-400); Red Blood Count 3.32 10^6/uL (4.1-5.3); Red Cell Distribution Width 13.8 % (12.1-15.1); White Blood Count 8.6 10^3/uL (4.0-10.0)
[2021-08-20 06:30] LABS: Anion Gap 13.2 (5-19); Blood Urea Nitrogen 5 mg/dL (6-20); Calcium 8.5 mg/dL (8.5-10.5); Carbon Dioxide 18 mmol/L (22-29); Chloride 113 mmol/L (98-107); Glomerular Filtration Rate 54.2 mL/min (90-130); Glucose 83 mg/dL (65-115); Osmolality Calculated 288 mOsm/kg (285-295); Potassium 3.2 mmol/L (3.5-5.1); Sodium 141 mmol/L (136-145)
[2021-08-20 07:57] LABS: Glucose Point of Care 104 mg/dL (70-110)
[2021-08-20 07:58] LABS: Glucose Point of Care 78 mg/dL (70-110)
[2021-08-20] MEDS: multivitamin therapeutic Tablet 1 TAB PO (09:23)
[2021-08-20] MEDS: pantoprazole DR 40 mg Tablet PO (09:23)
[2021-08-20] MEDS: ciprofloxacin 500 mg Tablet PO (09:23)
[2021-08-20] MEDS: ALPRAZolam 0.5 mg Tablet 2 MG PO (09:27)
--- NOTE | 2021-08-20 10:38 | P.DS_ITS ---
Discharge Providers Date of Admission: 08/16/21 12:39 Date of Discharge: August 20, 2021 Attending Provider at Admission: Jacob Steele MD Attending Provider at Discharge: Greg Shah Diagnoses at Discharge Discharge Diagnosis (1) Severe sepsis: Status: Acute (2) UTI (urinary tract infection): Status: Acute (3) Pyelonephritis: Status: Acute (4) Enteritis: Status: Acute (5) ANASTASIA (acute kidney injury): Status: Acute (6) Acidosis, lactic: Status: Acute (7) Renal abscess: Status: Acute (8) Diarrhea: Status: Acute (9) Hypernatremia: Status: Acute Reason for Visit Reason for Visit: vomiting/diarrhea/abdominal pain/runny nose Hospital Course Hospital Course 41-year-old lady with recent admission for cyst management of pyelonephritis, with cultures growing E. coli and blood in urine during that prior admission, was discharged on 08/13, return to the hospital on 08/16, with worsening abdominal pain, right lower quadrant pain, right flank pain, nausea vomiting, fatigue, malaise, chills, poor appetite. Also having diarrhea. With dysuria. On presentation with severe sepsis with leukocytosis 23.8, sinus tachycardia, febrile while in hospital, last fever episode 08/16. Thought to also have associated demand cardiac ischemia. CT abdomen pelvis with contrast with abnormal enhancement throughout each kidney consistent with pyelonephritis and multifocal renal abscesses. Greater involvement of the left kidney. No obstruction or hydronephrosis. Largest renal abscess measuring 17 mm lower pole of the left kidney. Also noted abnormal appearance of small bowel new since prior examination. Extensive submucosal edema and fluid distention of small bowel. Evalose improved but persistent mild wall thickening and loss of normal folds of colon. Consideration of pseudomembranous colitis. With recommended consideration of colonoscopy. Additional cultures were collected during this hospitalization, including blood in urine, which produced no growth and blood, and 10-20,000 mixed superficial storm in urine. Chlamydia, gonorrhea, trichomonas were negative. Stool studies were positive for lactoferrin, positive for occult blood, negative for C. difficile and negative bacterial and parasite panels. During auscultation she was treated with Zosyn due to persistent nephric abscesses which were not found drainable. She was also treated empirically with oral vancomycin due to possibility of development of colitis/C. difficile despite negative test. Severe sepsis resolved. Leukocytosis resolved. Tachycardia resolved. She remains afebrile since 08/16. Acute kidney injury also noted during hospitalization, creatinine as high as 1.7 has been gradually improving. Today creatinine down to 1.1. As she is doing much better, with resolution of sepsis she is discharged home to complete antibiotic course with 10 more days of ciprofloxacin. Her family states they will make sure that she is taking her antibiotics. She will complete additionally 10 days total of vancomycin by mouth. Please refer for colonoscopy evaluation in 4-6 weeks after resolution of colitis. Physical Exam Narrative: Family at bedside. Const: COMMON NORMALS: alert GENERAL APPEARANCE: cooperative ORIENTATION/CONSCIOUSNESS: Yes awake HENMT: COMMON NORMALS: normocephalic, EAC's normal, Normal external nose present and moist oral mucous membranes HEAD & SCALP: normocephalic NOSE: Normal external nose present EXTERNAL AUDITORY CANAL: EAC's normal Neck/C-Spine: COMMON NORMALS: no meningeal signs Chest: CHEST: Yes Symmetrical chest wall rise Resp: COMMON NORMALS: clear to auscultation bilaterally AUSCULTATION: clear to auscultation bilaterally Cardio: COMMON NORMALS: regular rate, regular rhythm and No murmurs present (Cardio) RATE: regular rate RHYTHM: regular rhythm GI: COMMON NORMALS: Normal to inspection, nondistended, normoactive bowel sounds present, Soft to palpation and non-tender PALPATION: Yes Soft to palpation Extremity: COMMON NORMALS: no pedal edema Neuro: COMMON NORMALS: moves all extremities SENSORIUM/ORIENTATION: Yes alert MENINGEAL SIGNS: Yes no meningeal signs Psych: COMMON NORMALS: mental status grossly normal Skin: COMMON NORMALS: no wounds RASHES: no rashes Discharge Data Studies Completed and Pending Completed Studies During Hospitalization Category Date Time Status CT abdomen pelvis w con* [id number] Urgent Cat Scan 08/16/21 09:00 Completed Pending at discharge Category Date Time Status Arterial Blood Gas W/O Coox Stat Lab 08/16/21 17:47 Ordered Basic Metabolic Panel AM LABS Lab 08/21/21 04:00 Ordered Basic Metabolic Panel AM LABS Lab 08/22/21 04:00 Ordered Blood Culture Stat Lab 08/16/21 12:05 Results Complete Blood Count w/Auto AM LABS Lab 08/21/21 04:00 Ordered Complete Blood Count w/Auto AM LABS Lab 08/22/21 04:00 Ordered Radiology Impressions Abdomen/Pelvis CT 08/16/21 09:00 IMPRESSION: 1. Abnormal enhancement throughout each kidney consistent with pyelonephritis and multifocal renal abscesses. Greater involvement of the LEFT kidney. No obstruction or hydronephrosis. 2. The largest renal abscess measures 17 mm lower pole LEFT kidney. 3. Abnormal appearance to the small bowel is new since the prior examination. There is extensive submucosal edema and fluid distention of the small bowel. These findings can be seen with hypovolemic shock/ischemic changes. Consider postinfectious causes. 4. Improved but persistent mild wall thickening and loss of the normal folds. Consider pseudomembranous colitis and infectious causes. As indicated on the prior examination colonoscopy to evaluate the RIGHT colon should be obtained. Notified Raiza Garza PA-C at 08/16/2021 11:26 AM. Laboratory Results WBC 8.6 10^3/uL (4.0-10.0) 08/20/21 05:32 RBC 3.32 10^6/uL (4.1-5.3) L 08/20/21 05:32 Hgb 10.1 g/dL (11.5-15.3) L 08/20/21 05:32 Hct 33.4 % (37.0-47.0) L 08/20/21 05:32 MCV 100.6 fl (81-99) H 08/20/21 05:32 MCH 30.4 pg (28.0-34.0) 08/20/21 05:32 MCHC 30.2 g/dL (30.0-36.0) 08/20/21 05:32 RDW 13.8 % (12.1-15.1) 08/20/21 05:32 Plt Count 363 10^3/cmm (130-400) 08/20/21 05:32 MPV 10.1 fL (7.4-10.4) 08/20/21 05:32 Neut % (Auto) 54.2 % 08/20/21 05:32 Lymph % (Auto) 35.1 % 08/20/21 05:32 [place] % (Auto) 5.6 % 08/20/21 05:32 Eos % (Auto) 3.6 % 08/20/21 05:32 Baso % (Auto) 1.2 % 08/20/21 05:32 Neut # (Auto) 4.67 10^3/uL (1.8-7.7) 08/20/21 05:32 Lymph # (Auto) 3.0 10^3/uL (0.8-4.8) 08/20/21 05:32 [place] # (Auto) 0.5 10^3/uL (0.2-0.9) 08/20/21 05:32 Eos # (Auto) 0.3 10^3/uL (0.0-0.8) 08/20/21 05:32 Baso # (Auto) 0.1 10^3/uL (0.0-0.1) 08/20/21 05:32 Nucleated RBC % (auto) 0 % 08/20/21 05:32 Nucleated RBCs # 0.0 /100WBC 08/20/21 05:32 Sodium 141 mmol/L (136-145) 08/20/21 05:32 Potassium 3.2 mmol/L (3.5-5.1) L 08/20/21 05:32 Chloride 113 mmol/L (98-107) H 08/20/21 05:32 Carbon Dioxide 18 mmol/L (22-29) L 08/20/21 05:32 Anion Gap 13.2 (5-19) 08/20/21 05:32 BUN 5 mg/dL (6-20) L 08/20/21 05:32 Creatinine 1.1 mg/dL (0.5-0.9) H 08/20/21 05:32 GFR Calculation 54.2 mL/min (90-130) L 08/20/21 05:32 Glucose 83 mg/dL (65-115) 08/20/21 05:32 POC Glucose 78 mg/dL (70-110) 08/20/21 06:31 Estimat Average Glucose 114 08/16/21 10:00 Hemoglobin A1c 5.6 % (4.0-6.0) 08/16/21 10:00 Calculated Osmolality 288 mOsm/kg (285-295) 08/20/21 05:32 Lactic Acid 2.0 mmol/L (0.5-2.2) 08/17/21 03:24 Lactic Acid (Sepsis) 2.0 mmol/L (0.5-2.2) 08/16/21 16:20 Calcium 8.5 mg/dL (8.5-10.5) 08/20/21 05:32 Phosphorus 4.0 mg/dL (2.5-4.5) 08/19/21 04:25 Magnesium 2.0 mg/dL (1.7-2.3) 08/20/21 05:32 Total Bilirubin 0.2 mg/dL (0.15-1.2) 08/19/21 04:25 AST 20 U/L (0-32) 08/19/21 04:25 ALT 12 U/L (0-33) 08/19/21 04:25 Alkaline Phosphatase 92 IU/L (35-105) 08/19/21 04:25 Troponin T Gen 5 ng/L 17 ng/L (0-10) H 08/17/21 03:24 Troponin T Baseline 24 ng/L (0-10) H 08/16/21 16:20 Troponin T 120 Minute 23.35 ng/L (0-10) H 08/16/21 18:35 Delta Troponin T -0.65 ABS# (0-10) L 08/16/21 18:35 Total Protein 5.7 g/dL (6.6-8.7) L 08/19/21 04:25 Albumin 2.3 g/dL (3.5-5.2) L 08/19/21 04:25 Globulin 3.4 g/dL (1.3-4.6) 08/19/21 04:25 Lipase 34 U/L (13-60) 08/16/21 10:00 TSH 1.14 uIU/mL (0.27-4.20) 08/16/21 10:00 Ser , Semi-Qnt 0.50 mIU/mL 08/16/21 10:00 Urine Color Yellow (Yellow) 08/16/21 09:25 Urine Appearance Hazy (CLEAR) A 08/16/21 09:25 Urine pH 6.5 (5-7) 08/16/21 09:25 Ur Specific [place] 1.005 (1.005-1.030) 08/16/21 09:25 Urine Protein 1+ (Negative) H 08/16/21 09:25 Urine Glucose (UA) Norm (Normal) 08/16/21 09:25 Urine Ketones Negative (Negative) 08/16/21 09:25 Urine Blood 2+ (Negative) H 08/16/21 09:25 Urine Nitrate Negative (Negative) 08/16/21 09:25 Urine Bilirubin Neg (Negative) 08/16/21 09:25 Urine Urobilinogen Norm mg/dL (Negative) 08/16/21 09:25 Ur Leukocyte Esterase 2+ (Negative) H 08/16/21 09:25 Urine RBC 0-4 /hpf (0-2) H 08/16/21 09:25 Urine WBC >100 /hpf (0-5) H 08/16/21 09:25 Ur Squamous Epith Cells 0-4 /hpf (0-5) H 08/16/21 09:25 Amorphous Sediment Not Reportable 08/16/21 09:25 Urine Bacteria Trace /hpf (NONE) 08/16/21 09:25 Urine Opiates Screen Positive ng/mL (Negative) H 08/16/21 09:25 Ur Barbiturates Screen Negative ng/mL (Negative) 08/16/21 09:25 Ur Phencyclidine Scrn Negative ng/mL (Negative) 08/16/21 09:25 Ur Amphetamines Screen Negative ng/mL (Negative) 08/16/21 09:25 U Benzodiazepines Scrn Positive ng/mL (Negative) H 08/16/21 09:25 Urine Cocaine Screen Negative ng/mL (Negative) 08/16/21 09:25 U Marijuana (THC) Screen Positive ng/mL (Negative) H 08/16/21 09:25 Serum Ketones Negative (Negative) 08/16/21 10:00 Vitals Last Vital Signs Temp 97.9 F 08/20/21 07:22 Pulse 83 08/20/21 07:22 Resp 16 08/20/21 07:22 BP 134/79 08/20/21 07:22 Pulse Ox 96 08/20/21 07:22 Discharge Plan Discharge Patient Disposition: Home Condition: Stable Prescriptions: New nicotine 21 mg/24 hr Patch 24 Hour 1 patch transdermal Q24H Qty: 90 0RF phenazopyridine [Pyridium] 200 mg tablet 200 mg PO TID Qty: 6 0RF ondansetron 4 mg tablet,disintegrating 4 mg PO Q8H PRN (Reason: nausea and vomiting) 3 Days Qty: 12 0RF vancomycin 1,000 mg Recon Soln 125 mg PO Q6H Qty: 22 0RF ciprofloxacin HCl 500 mg Tablet 500 mg PO BID@0900,2100 Qty: 20 0RF nicotine (polacrilex) 4 mg Lozenge 4 mg mucous membrane Q2H PRN (Reason: Nicotine Cravings) Qty: 108 0RF Continued multivitamin Tablet 1 tab PO DAILY 0RF alprazolam 2 mg tablet 2 mg PO TID PRN (Reason: Anxiety) 0RF escitalopram oxalate 20 mg tablet 20 mg PO BEDTIME 0RF duloxetine 60 mg capsule,delayed release(DR/EC) 120 mg PO QAM 0RF oxycodone-acetaminophen [Percocet] 5-325 mg tablet 1 tab PO Q8H PRN (Reason: pain) Qty: 14 0RF ondansetron 4 mg tablet,disintegrating 4 mg PO Q6H PRN (Reason: nausea and vomiting) Qty: 20 0RF acetaminophen [Acetaminophen Extra Strength] 500 mg tablet 500 mg PO Q6H PRN (Reason: pain) Qty: 20 0RF Discontinued levofloxacin 500 mg tablet 500 mg PO DAILY 14 Days Qty: 14 0RF Discharge Orders: Discharge Order (Routine); Ordered 08/20/21 Ordered By: Greg Shah Referrals: Homer Reyna DO [Physician] - 08/27/21 9:30 am Hubert Davies MD [Physician] - (renal abscesses) Discharge Activity: Increase activity as tolerated Patient Instructions: Ciprofloxacin (By mouth) (Cipro), Phenazopyridine (By mouth), Ondansetron (By mouth), Vancomycin (By mouth), How to Stop Smoking (GEN), Cigarette Smoking and Your Health (GEN), Kidney Infection (GEN), Opioid Safety Activity Restrictions/Additional Instructions: Please follow-up with your primary doctor for reassessment resolution of kidney infection/abscess. Please discuss also with your primary doctor referral for colonoscopy evaluation after resolution of colitis in about 6 weeks to evaluate for other possible causes and exclude any malignancy. Please have your primary doctor reassess your renal function due to acute kidney injury. Avoid any NSAIDs like ibuprofen, Aleve, etc. Please stop smoking. Discharge Attestations Time Spent in Discharge Care*: greater than 30 min Status at Discharge: Cognitive status at discharge: cognitively intact , Behavioral status at discharge: cooperative , Quality Metrics Clinical Quality Measures [ No reported AMI, CVA or VTE this stay] Coding Level of Care Code Acute Chg FW DC note Diagnoses Severe sepsis A41.9; R65.20 UTI (urinary tract infection) N39.0 Pyelonephritis N12 Enteritis K52.9 ANASTASIA (acute kidney injury) N17.9 Acidosis, lactic E87.2 Renal abscess N15.1 Diarrhea R19.7 Hypernatremia E87.0
[2021-08-20] MEDS: ondansetron 4 MG Tablet PO (15:56)
[2021-08-20 21:35] LABS: Glucose Point of Care 90 mg/dL (70-110)
[2021-08-20 21:35] LABS: Glucose Point of Care 101 mg/dL (70-110)
== END 2021-08-20 17:30 | disposition home or self-care (01) | DRG 871 ==
LOC: ER 12:39 → ICU 12:47 → MEDSURG 08-17 11:42
PROVIDERS: Internal Medicine; Physician Assistant; Admitting Provider Family Medicine; Emergency Provider Emergency Medicine; Visit Provider Internal Medicine
DX: A41.9 Sepsis, unspecified organism (principal); N15.1 Renal and perinephric abscess; I21.A1 Myocardial infarction type 2; N39.0 Urinary tract infection, site not specified; N12 Tubulo-interstitial nephritis, not specified as acute or chronic; N17.9 Acute kidney failure, unspecified; E87.2 Acidosis; E87.0 Hyperosmolality and hypernatremia; R65.20 Severe sepsis without septic shock; F17.210 Nicotine dependence, cigarettes, uncomplicated; K52.9 Noninfective gastroenteritis and colitis, unspecified; F41.9 Anxiety disorder, unspecified; R00.0 Tachycardia, unspecified; E83.42 Hypomagnesemia
CPT/HCPCS: 36415; 36416; 74177; 80048; 80053; 80306; 81001; 82009; 82274; 82962; 83036; 83605; 83630; 83690; 83735; 84100; 84443; 84484; 84702; 85025; 87040; 87086; 87491; 87493; 87506; 87591; 87661; 93005; 96365; 96367; 96372; 96375; 99285; C9113; J1650; J2060; J2270; J2405; J2543; J2765; J3370; J3475; J7030; J7040; Q0162; Q9967; S0030